=== PATIENT | female | born 1980 | race Caucasian/White ===

== ENCOUNTER 2023-04-19 01:48 | Emergency (ER) | payer MEDICAID ==
[2023-04-19] MEDS ORDERED: OXYCODONE-ACETAMINOPHEN 10-325 PO STA (02:01)
[2023-04-19 02:04] VITALS: RESP 18; TEMP 98.3
--- NOTE | 2023-04-19 02:06 | ERPHSYRPT ---
- History of Present Illness Time Seen by Provider: 04/19/23 01:54 Source: patient Exam Limitations: no limitations Physician History: 42 years old female with history of chronic back pain on Percocet and muscle relaxants presented in the ER with chief complaint of worsening back pain for the last 6 hours after she was wrestling with her . Patient reports lower back pain nonradiating moderate to severe sharp, took muscle relaxant with no significant relief. Patient reports she is out of her Percocet that she could not get her full prescription filled by pharmacy as they are short of Percocets otherwise she would have not been in the emergency room. She denies any numbness tingling weakness of lower extremities, hurts to walk but no obvious difficulty noticed while in the ER. No loss of bowel or bladder control. Pain is similar to previous. She is not in any distress. She has lower lumbar spinal and paraspinal area mild tenderness. No step-off deformity. Steady gait. Negative neuro exam in lower extremities. I do not think patient has spinal compression. She is given Percocet symptomatic relief and she is advised to get her rest of prescription filled in the morning. Discussed signs symptoms of worsening needing return to ER which she seems understanding. Stable for discharge. Allergies/Adverse Reactions: diazepam [From Valium] Allergy (Mild, Verified 04/19/23 01:56) sertraline [From Zoloft] Allergy (Mild, Verified 04/19/23 01:56) sulfamethoxazole [From Bactrim] Allergy (Mild, Verified 04/19/23 01:56) trimethoprim [From Bactrim] Allergy (Mild, Verified 04/19/23 01:56) Home Medications: No Reportable Medications [No Reported Medications] 04/19/23 [History] - Review of Systems Constitutional: No Symptoms Ears, Nose, & Throat: No Symptoms Respiratory: No Symptoms Cardiac: No Symptoms Abdominal/Gastrointestinal: No Symptoms Genitourinary Symptoms: No Symptoms Musculoskeletal: Back Pain Skin: No Symptoms Neurological: No Symptoms Hematologic/Lymphatic: No Symptoms Immunological/Allergic: No Symptoms - Physical Exam General Appearance: no apparent distress, alert Ears, Nose, Throat Exam: normal ENT inspection Neck Exam: normal inspection, full range of motion Respiratory Exam: normal breath sounds, lungs clear Cardiovascular Exam: regular rate/rhythm, normal heart sounds Gastrointestinal Exam: soft, normal bowel sounds, No tenderness Back Exam: normal inspection, decreased range of motion, muscle spasm, point tenderness (Lower lumbar paraspinal area and mild tenderness in lumbar vertebra. No step-off deformity.) Extremity Exam: normal inspection, normal range of motion, pelvis stable Neurologic Exam: alert, oriented x 3, normal mood/affect, nml station & gait, sensation nml, other (2+ symmetric reflexes bilateral patella and Achilles. Plantars downgoing bilaterally.), No motor deficits Skin Exam: normal color SpO2 Interpretation: normal SpO2: 96 O2 Delivery: Room Air - Progress Progress: pain not gone completely Progress Note: 04/19/23 02:05 42 years old female with history of chronic back pain on Percocet and muscle relaxants presented in the ER with chief complaint of worsening back pain for the last 6 hours after she was wrestling with her . Patient reports lower back pain nonradiating moderate to severe sharp, took muscle relaxant with no significant relief. Patient reports she is out of her Percocet that she could not get her full prescription filled by pharmacy as they are short of Percocets otherwise she would have not been in the emergency room. She denies any numbness tingling weakness of lower extremities, hurts to walk but no obvious difficulty noticed while in the ER. No loss of bowel or bladder cont rol. Pain is similar to previous. She is not in any distress. She has lower lumbar spinal and paraspinal area mild tenderness. No step-off deformity. Steady gait. Negative neuro exam in lower extremities. I do not think patient has spinal compression. She is given Percocet symptomatic relief and she is advised to get her rest of prescription filled in the morning. Discussed signs symptoms of worsening needing return to ER which she seems understanding. Stable for discharge. Counseled pt/family regarding: diagnosis, need for follow-up - Departure Departure Disposition: Home Clinical Impression: Acute exacerbation of chronic low back pain Condition: Stable Critical Care Time: No Instructions: Low Back Pain (DC) Additional Instructions: Follow-up with your primary care and pain management for reevaluation in 1 to 2 days. Get your prescription filled. Take Tylenol/ibuprofen as needed and continue with muscle relaxants. Return to ER for intractable pain, numbness tingling weakness of lower extremities/loss of bowel or bladder control etc.
[2023-04-19] MEDS ORDERED: OXYCODONE-ACETAMINOPHEN 10-325 ONE (02:12)
[2023-04-19 02:27] VITALS: BP 124/68; PULSE 76; O2SAT 97
== END 2023-04-19 02:30 | disposition home or self-care (01) ==
LOC: ED 01:48
DX: G89.29 Other chronic pain (principal); M54.50 Low back pain, unspecified; Z79.891 Long term (current) use of opiate analgesic
CPT/HCPCS: 99281; A9270-GY

== ENCOUNTER 2023-04-21 11:38 | Emergency (ER) | payer MEDICARE ==
[2023-04-21 12:04] VITALS: BP 155/95; PULSE 110; RESP 19
[2023-04-21 12:24] VITALS: O2SAT 94
--- NOTE | 2023-04-21 12:47 | ERPHSYRPT ---
- History of Present Illness Time Seen by Provider: 04/21/23 11:43 Source: patient Exam Limitations: no limitations Patient Subjective Stated Complaint: CHRONIC BACK PAIN Triage Nursing Assessment: PATIENT REPORTS TO ER WITH C/O OF CHRONIC BACK PAIN. PATIENT RATING PAIN 10/10 AT THIS TIME. PATIENT DENIES INJURY TO BACK. PATIENT AMBULATED PER SELF BACK TO ER. PATIENT SITTING UPRIGHT IN BED WITH NO SIGNS OF DISTRESS AND EASY RESPIRATIONS. PATIENT STATES SHE SEES DR. DIAS FOR PAIN MANAGEMENT IN [place] TO MANAGE CHRONIC BACK PAIN AND THAT SHE IS PRESCRIBED PERCOCET 7.5/325MG PO TID SCHEDULED. PATIENT PICKED SCRIPT UP WITH 90 TABLETS ON 03/26/23 AND STATES THAT SHE RAN OUT OF PILLS A LITTLE OVER A WEEK AGO. PATIENT STATES THAT SHE CAME TO THIS ER ON 04/19 AND WAS GIVEN A PAIN PILL DUE TO UNCONTROLLABLE PAIN. PATIENT STATES SHE CALLED THE CASE MAKER NUMBER FOR DR. DIAS AND THAT SHE WILL SEE HIM IN OFFICE TOMORROW. Physician History: 42 years old female with history of chronic back pain on pain management on Percocet 7.5 mg 3 times a day presented in the ER with worsening back pain. Patient was seen in this ER 2 days ago with similar symptoms which she stated that she hurt her back while wrestling with her . Today she did not complain anything like this and reported to the RN that she ran out of her pain medications almost a week ago. Patient told me today and other day that her pharmacy did not fill her full prescription as they are out of Percocet 7.5 mg. She denies any fall or trauma. Patient walked in the ER with no limitations/assistance. She denies any numbness tingling or weakness of lower extremities, no loss of bowel or bladder control. Patient reports she does not want any NSAIDs and only narcotic pain medications help her. I have called her pharmacy at [facility] and have confirmed with them that she is not due for her prescription refill and she filled 90 pills on March 26 and they are not out of Percocet at all. I have told patient and she have called [facility] in front of an RN and pharmacy did confirm that she did not due for her prescription refill and they are not out of it. Patient is offered Toradol and muscle relaxant which she declined. I have realized that patient has not been in this ER until day before yesterday and this is her second visit in 2 days which make me suspicious for drug-seeking behavior. She has no cauda equina symptoms, no acute trauma, do not think she needs a narcotic pain medication specially when she is on pain management contract. Discussed signs symptoms of worsening needing return to ER which she seems understanding. Patient is not happy with the fact that she is not getting any pain medications and it was not a pleasant encounter at all. Allergies/Adverse Reactions: diazepam [From Valium] Allergy (Mild, Verified 04/21/23 11:46) sertraline [From Zoloft] Allergy (Mild, Verified 04/21/23 11:46) sulfamethoxazole [From Bactrim] Allergy (Mild, Verified 04/21/23 11:46) trimethoprim [From Bactrim] Allergy (Mild, Verified 04/21/23 11:46) Home Medications: Oxycodone HCl/Acetaminophen [Oxycodone-Acetaminophn 7.5-325] 1 tab PO TID 04/21/23 [History] Hx Tetanus, Diphtheria Vaccination/Date Given: Yes Hx Influenza Vaccination/Date Given: No Hx Pneumococcal Vaccination/Date Given: No Travel Risk - International Travel Have you traveled outside of the country in past 3 weeks: No - Coronavirus Screening Are you exhibiting any of the following symptoms?: No Close contact with a COVID-19 positive Pt in past 14-21 Days: No - Vaccine Status Have you recieved a Covid-19 vaccination: Yes Pan Greaser: Moderna - Vaccination Dates Date of 2cond Vaccination (if applicable): N/A - Review of Systems Constitutional: No Symptoms Eyes: No Symptoms Ears, Nose, & Throat: No Symptoms Respiratory: No Symptoms Cardiac: No Symptoms Abdominal/Gastrointestinal: No Symptoms Genitourinary Symptoms: No Symptoms Musculoskeletal: Back Pain Skin: No Symptoms Neurological: No Symptoms Endocrine: No Symptoms Hematologic/Lymphatic: No Symptoms - Past Medical History Pertinent Past Medical History: Yes Neurological History: No Pertinent History ENT History: No Pertinent History Cardiac History: No Pertinent History Respiratory History: No Pertinent History Endocrine Medical History: No Pertinent History Musculoskeletal History: Degenerative Disk Disease, Osteoarthritis, Other GI Medical History: No Pertinent History History: No Pertinent History Psycho-Social History: No Pertinent History Female Reproductive Disorders: No Pertinent History Other Medical History: back strains - Past Surgical History Past Surgical History: Yes Neuro Surgical History: No Pertinent History Cardiac: No Pertinent History Respiratory: No Pertinent History Gastrointestinal: Cholecystectomy Genitourinary: No Pertinent History Musculoskeletal: No Pertinent History Female Surgical History: Tubal Ligation, Other Other Surgical History: R ovary removed - Social History Smoking Status: Current every day smoker Exposure to second hand smoke: Yes Drug Use: none Patient Lives Alone: No - Female History Hx Now: No - Nursing Vital Signs Nursing Vital Signs: Initial Vital Signs Pulse Rate 110 H 04/21/23 11:49 Respiratory Rate 19 04/21/23 11:49 Blood Pressure 155/95 04/21/23 11:49 O2 Sat by Pulse Oximetry 96 04/21/23 11:49 Pain Scale Pain Intensity 10 - Physical Exam General Appearance: no apparent distress Eye Exam: PERRL/EOMI Ears, Nose, Throat Exam: normal ENT inspection, pharynx normal Neck Exam: normal inspection, supple, full range of motion Respiratory Exam: normal breath sounds, lungs clear Cardiovascular Exam: normal heart sounds, tachycardia Gastrointestinal Exam: soft, normal bowel sounds, No tenderness Back Exam: normal inspection, normal range of motion, muscle spasm, point tenderness (Lumbar paraspinal area and mild tenderness in the lower lumbar spine. Negative straight leg raising test bilateral. Intact sensations bilaterally. 2+ patellar and Achilles reflexes symmetrical bilaterally. Plantars downgoing.) Extremity Exam: normal inspection, normal range of motion, pelvis stable Neurologic Exam: alert, oriented x 3, cooperative, nml station & gait, sensation nml, No motor deficits Skin Exam: normal color SpO2 Interpretation: normal SpO2: 94 O2 Delivery: Room Air - Progress Progress Note: 04/21/23 12:48 42 years old female with history of chronic back pain on pain management on Percocet 7.5 mg 3 times a day presented in the ER with worsening back pain. Patient was seen in this ER 2 days ago with similar symptoms which she stated that she hurt her back while wrestling with her . Today she did not complain anything like this and reported to the RN that she ran out of her pain medications almost a week ago. Patient told me today and other day that her pharmacy did not fill her full prescription as they are out of Percocet 7.5 mg. She denies any fall or trauma. Patient walked in the ER with no limitations/assistance. She denies any numbness tingling or weakness of lower extremities, no loss of bowel or bladder control. Patient reports she does not want any NSAIDs and only narcotic pain medications help her. I have called her pharmacy at [facility] and have confirmed with them that she is not due for her prescription refill and she filled 90 pills on March 26 and they are not out of Percocet at all. I have told patient and she have called pharmacy in front of an RN and pharmacy did confirm that she did not due for her prescription refill and they are not out of it. Patient is offered Toradol and muscle relaxant which she declined. I have realized that patient has not been in this ER until day before yesterday and t his is her second visit in 2 days which make me suspicious for drug-seeking behavior. She has no cauda equina symptoms, no acute trauma, do not think she needs a narcotic pain medication specially when she is on pain management contract. Discussed signs symptoms of worsening needing return to ER which she seems understanding. Patient is not happy with the fact that she is not getting any pain medications and it was not a pleasant encounter at all. She walked out of the ER without informing anyone Counseled pt/family regarding: diagnosis, need for follow-up - Departure Departure Disposition: AMA (jake) Clinical Impression: Acute exacerbation of chronic low back pain Condition: Stable Critical Care Time: No Referrals: Dennys Mckenzie [Primary Care Provider] - Follow up with PCP 1 day Instructions: Low Back Pain (DC) Additional Instructions: Follow-up with your pain management in the morning. Take Tylenol/ibuprofen as needed. Continue with your muscle relaxants. Return to ER for intractable pain, numbness tingling weakness of lower extremities/loss of bowel or bladder control/perineal numbness etc.
== END 2023-04-21 12:45 | disposition left against medical advice (07) ==
LOC: ED 11:38
DX: G89.29 Other chronic pain (principal); M54.50 Low back pain, unspecified; Z79.891 Long term (current) use of opiate analgesic; Z72.0 Tobacco use
CPT/HCPCS: 99281

== ENCOUNTER 2023-06-07 21:29 | Emergency (ER) | payer MEDICARE ==
--- NOTE | 2023-06-07 23:12 | ERPHSYRPT ---
- History of Present Illness Time Seen by Provider: 06/07/23 23:11 Source: patient Exam Limitations: no limitations Physician History: This is a 42-year-old white female patient who was falling towards a wall when she used her right hand/extremity to stop her from falling forward. She felt significant pain later in the afternoon. The falling forward and bracing herself occurred approximately noon today. Patient has had prior fractures, dislocation and surgery in this right elbow. Patient took 400 mg ibuprofen at 6:30 PM and one 7.5/325 oxycodone/APAP at approximately 6:30 PM. Occurred: this afternoon Method of Injury: fell (Forward into a wall) Quality: aching Severity of Pain-Max: moderate Severity of Pain-Current: moderate Extremities Pain Location: elbow: right Modifying Factors: Improves With: movement Associated Symptoms: none Allergies/Adverse Reactions: diazepam [From Valium] Allergy (Mild, Verified 06/07/23 23:10) sertraline [From Zoloft] Allergy (Mild, Verified 06/07/23 23:10) sulfamethoxazole [From Bactrim] Allergy (Mild, Verified 06/07/23 23:10) trimethoprim [From Bactrim] Allergy (Mild, Verified 06/07/23 23:10) Home Medications: Oxycodone HCl/Acetaminophen [Oxycodone-Acetaminophn 7.5-325] 1 tab PO TID 04/21/23 [History] Hx Tetanus, Diphtheria Vaccination/Date Given: Yes Hx Influenza Vaccination/Date Given: No Hx Pneumococcal Vaccination/Date Given: No Travel Risk - International Travel Have you traveled outside of the country in past 3 weeks: No - Coronavirus Screening Are you exhibiting any of the following symptoms?: No Close contact with a COVID-19 positive Pt in past 14-21 Days: No - Vaccine Status Have you recieved a Covid-19 vaccination: Yes Pattern Hand: Moderna - Vaccination Dates Date of 2cond Vaccination (if applicable): N/A - Review of Systems Constitutional: No Symptoms Eyes: No Symptoms Ears, Nose, & Throat: No Symptoms Respiratory: No Symptoms Cardiac: No Symptoms Abdominal/Gastrointestinal: No Symptoms Genitourinary Symptoms: No Symptoms Musculoskeletal: Injury (Right elbow) Skin: No Symptoms Neurological: No Symptoms Psychological: No Symptoms Endocrine: No Symptoms Hematologic/Lymphatic: No Symptoms Immunological/Allergic: No Symptoms All Other Systems: Reviewed and Negative - Past Medical History Pertinent Past Medical History: Yes Neurological History: No Pertinent History ENT History: No Pertinent History Cardiac History: No Pertinent History Respiratory History: No Pertinent History Endocrine Medical History: No Pertinent History Musculoskeletal History: Degenerative Disk Disease, Osteoarthritis, Other GI Medical History: No Pertinent History History: No Pertinent History Psycho-Social History: No Pertinent History Female Reproductive Disorders: No Pertinent History Other Medical History: back strains - Past Surgical History Past Surgical History: Yes Neuro Surgical History: No Pertinent History Cardiac: No Pertinent History Respiratory: No Pertinent History Gastrointestinal: Cholecystectomy Genitourinary: No Pertinent History Musculoskeletal: No Pertinent History Female Surgical History: Tubal Ligation, Other Other Surgical History: R ovary removed - Social History Smoking Status: Current every day smoker Exposure to second hand smoke: Yes Drug Use: none Patient Lives Alone: No - Nursing Vital Signs Nursing Vital Signs: Initial Vital Signs Pulse Rate 84 06/07/23 23:09 Respiratory Rate 18 06/07/23 23:09 Blood Pressure 129/82 06/07/23 23:09 O2 Sat by Pulse Oximetry 96 06/07/23 23:09 Pain Scale Pain Intensity 9 - Physical Exam General Appearance: no apparent distress, alert, anxiety Eyes, Ears, Nose, Throat Exam: normal ENT inspection, moist mucous membranes Neck Exam: normal inspection, non-tender, supple, full range of motion Cardiovascular/Respiratory Exam: chest non-tender, no respiratory distress Abdominal Exam: non-tender Back Exam: normal inspection, normal range of motion, No CVA tenderness, No vertebral tenderness Shoulder Exam: normal inspection, non-tender, no evidence of injury, normal ROM Elbow/Forearm Exam: normal inspection, normal ROM, bone tenderness (Right elbow), soft tissue tenderness (Overlying right elbow), No deformity Wrist Exam: normal inspection, non-tender, no evidence of injury, normal ROM Hand Exam: normal inspection, non-tender, no evidence of injury, normal ROM Neuro/Tendon Exam: normal sensation, normal motor functions, normal tendon functions, responds to pain, no evidence tendon injury Mental Status Exam: alert, oriented x 3, cooperative Skin Exam: normal color, warm, dry SpO2 Interpretation: normal O2 Delivery: Room Air - Course Nursing assessment & vital signs reviewed: Yes Ordered Tests: Active Orders 24 hr Category Date Time Status ELBOW (MINIMUM 3 VIEWS) Stat Exams 06/07/23 23:26 Taken - Progress Progress: improved, pain not gone completely Progress Note: 06/08/23 00:11 This patient's medical issue is 1 of low complexity. The level of complexity in the workup performed is based on review of the patient's past medical history, review of the patient's medication list, review of patient drug allergy list, history present illness and physical findings on examination. The workup in this patient includes three-view x-ray right elbow I interpreted the x-ray of the right elbow. There is no evidence of any acute fracture or dislocation. Counseled pt/family regarding: diagnosis, need for follow-up, rad results Medical Desision Making - Diagnostic Testing Diagnostic test were ordered, analyzed, and reviewed by me: Yes Radiological Interpretation: Interpreted by me - Risk of complications Minimal Risk: Minimal risk of morbidity - Departure Departure Disposition: Home Clinical Impression: Sprain of right elbow Condition: Stable Critical Care Time: No Referrals: Dennys Mckenzie [Primary Care Provider] - Follow up/PCP as directed Additional Instructions: Ice pack to tender area 3 times a day for the next 48 hours. Continue using your pain medicine as prescribed. Continue using ibuprofen 400 to 600 mg orally with food 3 times a day for the next 5 days. Call your prescribing provider on 06/11/2023 to make arranges for further evaluation management.
[2023-06-07 23:21] VITALS: TEMP 97
[2023-06-08] MEDS ORDERED: ZOFRAN ODT 4 MG PO ONE (00:13)
[2023-06-08] MEDS ORDERED: Hydromorphone 1 mg/ml Injection IM ONE (00:14)
[2023-06-08 00:20] VITALS: BP 116/75; PULSE 94; RESP 18; O2SAT 98
[2023-06-08] MEDS ORDERED: ZOFRAN ODT 4 MG ONE (00:21)
[2023-06-08] MEDS ORDERED: Hydromorphone 1 mg/ml Injection ONE (00:21)
--- NOTE | 2023-06-08 07:15 | XRAY ---
Indication: Pain following injury. Comparison: None 3 view right elbow obtained. No bony, articular, or soft tissue abnormalities.
== END 2023-06-08 00:48 | disposition home or self-care (01) ==
LOC: ED 21:29
DX: S53.401A Unspecified sprain of right elbow, initial encounter (principal); W22.01XA Walked into wall, initial encounter; Z79.891 Long term (current) use of opiate analgesic; Z72.0 Tobacco use
CPT/HCPCS: 73080; 96372; 99283; J1170; Q0162

== ENCOUNTER 2023-06-10 21:53 | Emergency (ER) | payer MEDICARE ==
[2023-06-10 22:12] VITALS: RESP 18; TEMP 98.2
[2023-06-10] MEDS ORDERED: Sodium Chloride 0.9% 1000 ML 1,000 ML IV STA (22:17)
[2023-06-10] MEDS ORDERED: Zofran 4 MG/2 ML VIAL IV ONE (22:17)
[2023-06-10] MEDS ORDERED: MORPHINE SULFATE 4 MG INJ IV ONE ×2 (22:17→23:17)
[2023-06-10] MEDS ORDERED: Zofran 4 MG/2 ML VIAL ONE (22:26)
[2023-06-10] MEDS ORDERED: Sodium Chloride 0.9% 1000 ML 1,000 ML ONE (22:27)
[2023-06-10] MEDS ORDERED: MORPHINE SULFATE 4 MG INJ ONE ×2 (22:27→23:19)
[2023-06-10 22:38] LABS: Absolute Neutrophil Ct (ANC) 4.47 x10^3/uL (1.4-6.9); BASOPHIL % 0.4 % (0.0-0.4); Basophil (Absolute #) 0.03 x10^3/uL (0-0.4); Eosinophil % 1.4 % (0.00-5.0); Hematocrit 36.8 % (35-47); Hemoglobin 12.5 g/dL (12.0-16.0); IMMATURE GRAN # 0.01 x10^3u/L (0.00-0.03); IMMATURE GRAN % 0.1 % (0.00-0.4); Lymphocyte (Absolute #) 2.02 x10^3/uL (1.0-4.6); Lymphocytes % 28.8 % (24.0-44.0); Mean Cell Volume 92.2 fL (78-100); Mean Corpuscular Hemoglobin 31.3 pg (26-32); Mean Platelet Volume 9.3 fL (7.5-11.0); Monocyte (Absolute #) 0.39 x10^3/uL (0.0-1.3); Monocytes % 5.6 % (0.0-12.0); Neutrophil % 63.7 % (36.0-66.0); Platelet Count 214 x10^3/uL (150-450); Red Blood Count 3.99 x10^6/uL (4.1-5.4); Red Cell Distribution Width 11.9 % (11.5-14.0)
[2023-06-10 22:42] LABS: HCG URINE TEST NEGATIVE (NEGATIVE)
[2023-06-10 22:46] LABS: Bacteria Rare /HPF (None Seen); Epithelial Cells Moderate /HPF (None Seen); Hyaline Casts NONE SEEN /LPF (0-2); RBC 0-2 /HPF (0-5)
[2023-06-10 22:46] LABS: ANION GAP 10.3 MEQ/L (5-15); BILIRUBIN,TOTAL 0.4 mg/dL (0.2-1.3); Calcium 9.5 mg/dL (8.4-10.2); Creatinine 1 0.61 mg/dL (0.52-1.04); EST GLOMERULAR FILTRATION RATE 115.8 ML/MIN; Potassium 3.4 mmol/L (3.5-5.1); Total Protein 6.9 g/dL (6.3-8.2)
[2023-06-10 22:47] LABS: Appearance Clear (Clear); Bilirubin Negative (Negative); Blood Negative (Negative); Ketones Negative (Negative); Leukocyte Esterase Trace (Negative); Nitrite Negative (Negative); Protein,Urine Dip Negative (Negative); Specific Gravity 1.025 (1.005-1.030); Urobilinogen 0.2 mg/dL (0.2)
[2023-06-10 22:48] LABS: ADD URINE CULTURE? NO (NO); Glucose, Urine Negative (Negative)
[2023-06-10] MEDS ORDERED: TORAdol 30 mg Injection IV ONE (22:57)
[2023-06-10] MEDS ORDERED: TORAdol 30 mg Injection ONE (23:04)
[2023-06-10 23:09] VITALS: PULSE 92
--- NOTE | 2023-06-10 23:55 | ERPHSYRPT ---
- History of Present Illness Time Seen by Provider: 06/10/23 22:02 Historian: patient Exam Limitations: no limitations Patient Subjective Stated Complaint: pt reports RLQ pain beginning last evening around this time. pt reports pain is worse after meals and especially worse after glenn dinner this evening. pt reports nausea and vomiting as well. pt denies an /GI complaint. pt reports that she has a ride if needed. Triage Nursing Assessment: pt is aox3, ambulatory to t area with no difficulty, pupils perrl, afebrile, resps easy and non labored, radial pulses strong and equal, cap refill < 3 seconds, heart tones regular, abd soft, tender to the RLQ with palpation, bowel sounds present normoactive x4, pt skin pink warm dry. Physician History: 42 years old female with history of chronic back pain on pain management presented in the ER with chief complaint of right lower quadrant pain since yesterday, moderate to severe sharp, aggravated with oral intake and got worse after she had a [employer] dinner tonight. Reports 10/10 intensity pain, no relieving factors. Associated nausea and couple of episodes of nonprojectile, nonbilious vomiting without hematemesis. Denies any diarrhea or constipation. No fever or chills reported. Patient reports this pain is different than her routine back pain. 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 Allergies/Adverse Reactions: diazepam [From Valium] Allergy (Mild, Verified 06/10/23 21:59) sertraline [From Zoloft] Allergy (Mild, Verified 06/10/23 21:59) sulfamethoxazole [From Bactrim] Allergy (Mild, Verified 06/10/23 21:59) trimethoprim [From Bactrim] Allergy (Mild, Verified 06/10/23 21:59) Home Medications: Oxycodone HCl/Acetaminophen [Oxycodone-Acetaminophn 7.5-325] 1 tab PO TID 04/21/23 [History] Hx Tetanus, Diphtheria Vaccination/Date Given: Yes Hx Influenza Vaccination/Date Given: No Hx Pneumococcal Vaccination/Date Given: No Travel Risk - International Travel Have you traveled outside of the country in past 3 weeks: No - Coronavirus Screening Are you exhibiting any of the following symptoms?: No Close contact with a COVID-19 positive Pt in past 14-21 Days: No - Vaccine Status Have you recieved a Covid-19 vaccination: Yes Supervisor Stripping: Moderna - Vaccination Dates Date of 2cond Vaccination (if applicable): N/A - Review of Systems Constitutional: No Symptoms Eyes: No Symptoms Ears, Nose, & Throat: No Symptoms Respiratory: No Symptoms Cardiac: No Symptoms Abdominal/Gastrointestinal: Abdominal Pain, Nausea, Vomiting Genitourinary Symptoms: No Symptoms Musculoskeletal: Back Pain Skin: No Symptoms Neurological: No Symptoms Endocrine: No Symptoms Hematologic/Lymphatic: No Symptoms Immunological/Allergic: No Symptoms - Past Medical History Pertinent Past Medical History: Yes Neurological History: No Pertinent History ENT History: No Pertinent History Cardiac History: No Pertinent History Respiratory History: No Pertinent History Endocrine Medical History: No Pertinent History Musculoskeletal History: Degenerative Disk Disease, Osteoarthritis, Other GI Medical History: No Pertinent History History: No Pertinent History Psycho-Social History: No Pertinent History Female Reproductive Disorders: No Pertinent History Other Medical History: back strains - Past Surgical History Past Surgical History: Yes Neuro Surgical History: No Pertinent History Cardiac: No Pertinent History Respiratory: No Pertinent History Gastrointestinal: Cholecystectomy Genitourinary: No Pertinent History Musculoskeletal: No Pertinent History Female Surgical History: Tubal Ligation, Other Other Surgical History: R ovary removed - Social History Smoking Status: Current every day smoker How long have you smoked: 14 yo Exposure to second hand smoke: Yes Drug Use: none Patient Lives Alone: No - Female History Hx Last Menstrual Period: 2011 Hx Now: (unkn) - Nursing Vital Signs Nursing Vital Signs: Initial Vital Signs Temperature 98.2 F 06/10/23 22:00 Pulse Rate 107 H 06/10/23 22:00 Respiratory Rate 18 06/10/23 22:00 Blood Pressure 115/87 06/10/23 22:00 O2 Sat by Pulse Oximetry 96 06/10/23 22:00 Pain Scale Pain Intensity 4 - Physical Exam General Appearance: no apparent distress, alert Eye Exam: PERRL/EOMI Ears, Nose, Throat Exam: normal ENT inspection Neck Exam: normal inspection, supple, full range of motion Respiratory Exam: normal breath sounds, lungs clear Cardiovascular Exam: regular rate/rhythm, normal heart sounds Gastrointestinal/Abdomen Exam: soft, normal bowel sounds, tenderness (Right lower quadrant) Back Exam: normal inspection, normal range of motion, No CVA tenderness Extremity Exam: normal inspection, normal range of motion Neurologic Exam: alert, oriented x 3, cooperative, 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 analyst II-XII nml as tested Skin Exam: normal color SpO2 Interpretation: normal SpO2: 98 O2 Delivery: Room Air Ordered Tests: Active Orders 24 hr Category Date Time Status IV Insertion STAT Care 06/10/23 22:17 Active NPO (ED) STAT Care 06/10/23 22:17 Active ABDOMEN AND PELVIS W CONTRAST [CT] Stat Exams 06/10/23 22:18 Completed CBC W DIFF Stat Lab 06/10/23 22:34 Completed CMP Stat Lab 06/10/23 22:34 Completed HCG QUALITATIVE, URINE Stat Lab 06/10/23 22:24 Completed LIPASE Stat Lab 06/10/23 22:34 Completed Lactic Acid Stat Lab 06/10/23 22:45 Completed UA W/RFX UR CULTURE Stat Lab 06/10/23 22:24 Completed Medication Summary Discontinued Medications Generic Name Dose Route Start Last Admin Trade Name Freq PRN Reason Stop Dose Admin Sodium Chloride 1,000 mls @ 999 mls/hr 06/10/23 22:17 06/10/23 23:35 Sodium Chloride 0.9% 1000 Ml IV 06/10/23 23:17 Infused .Q1H1M STA Infusion Sodium Chloride Confirm 06/10/23 22:27 Sodium Chloride 0.9% 1000 Ml Administered 06/10/23 22:28 Dose 1,000 mls @ ud .ROUTE .STK-MED ONE Ketorolac Tromethamine 30 mg 06/10/23 22:57 06/10/23 23:07 Ketorolac Tromethamine 30 Mg/Ml Inj IV 06/10/23 22:58 Not Given STAT ONE Ketorolac Tromethamine Confirm 06/10/23 23:04 Ketorolac Tromethamine 30 Mg/Ml Inj Administered 06/10/23 23:05 Dose 30 mg .ROUTE .STK-MED ONE Morphine Sulfate 4 mg 06/10/23 22:17 06/10/23 22:31 Morphine Sulfate 4 Mg/Ml Injection IV 06/10/23 22:18 4 mg STAT ONE Administration Morphine Sulfate Confirm 06/10/23 22:27 Morphine Sulfate 4 Mg/Ml Injection Administered 06/10/23 22:28 Dose 4 mg .ROUTE .STK-MED ONE Morphine Sulfate 4 mg 06/10/23 23:17 06/10/23 23:20 Morphine Sulfate 4 Mg/Ml Injection IV 06/10/23 23:18 4 mg STAT ONE Administration Morphine Sulfate Confirm 06/10/23 23:19 Morphine Sulfate 4 Mg/Ml Injection Administered 06/10/23 23:20 Dose 4 mg .ROUTE .STK-MED ONE Ondansetron HCl 4 mg 06/10/23 22:17 06/10/23 22:30 Ondansetron Hcl 4 Mg/2 Ml Vial IV 06/10/23 22:18 4 mg STAT ONE Administration Ondansetron HCl Confirm 06/10/23 22:26 Ondansetron Hcl 4 Mg/2 Ml Vial Administered 06/10/23 22:27 Dose 4 mg .ROUTE .STK-MED ONE Lab/Rad Data: Laboratory Result Diagrams 06/10/23 22:34 06/10/23 22:34 Laboratory Results 06/10/23 06/10/23 06/10/23 Range/Units 22:45 22:34 22:34 WBC 7.0 (4.0-10.5) x10^3/uL RBC 3.99 L (4.1-5.4) x10^6/uL Hgb 12.5 (12.0-16.0) g/dL Hct 36.8 (35-47) % MCV 92.2 (78-100) fL MCH 31.3 (26-32) pg MCHC 34.0 (32-36) g/dL RDW 11.9 (11.5-14.0) % Plt Count 214 (150-450) x10^3/uL MPV 9.3 (7.5-11.0) fL Gran % 63.7 (36.0-66.0) % Immature Gran % (Auto) 0.1 (0.00-0.4) % Nucleat RBC Rel Count 0.0 (0.00-0.1) % Eos # (Auto) 0.10 (0-0.5) x10^3/uL Immature Gran # (Auto) 0.01 (0.00-0.03) x10^3u/L Absolute Lymphs (auto) 2.02 (1.0-4.6) x10^3/uL Absolute Monos (auto) 0.39 (0.0-1.3) x10^3/uL Absolute Nucleated RBC 0.00 (0.00-0.01) x10^3u/L Lymphocytes % 28.8 (24.0-44.0) % Monocytes % 5.6 (0.0-12.0) % Eosinophils % 1.4 (0.00-5.0) % Basophils % 0.4 (0.0-0.4) % Absolute Granulocytes 4.47 (1.4-6.9) x10^3/uL Basophils # 0.03 (0-0.4) x10^3/uL Sodium 135 L (137-145) mmol/L Potassium 3.4 L (3.5-5.1) mmol/L Chloride 103 (98-107) mmol/L Carbon Dioxide 25 (22-30) mmol/L Anion Gap 10.3 (5-15) MEQ/L BUN 8 (7-17) mg/dL Creatinine 0.61 (0.52-1.04) mg/dL Estimated GFR 115.8 ML/MIN Glucose 89 (74-106) mg/dL Lactic Acid 1.1 (0.4-2.0) Calcium 9.5 (8.4-10.2) mg/dL Total Bilirubin 0.40 (0.2-1.3) mg/dL AST 17 (14-36) U/L ALT 17 (0-35) U/L Alkaline Phosphatase 90 (38-126) U/L Serum Total Protein 6.9 (6.3-8.2) g/dL Albumin 4.0 (3.5-5.0) g/dL Lipase 59 (23-300) U/L Urine Color (Yellow) Urine Appearance (Clear) Urine pH (4.6-8.0) Ur Specific [place] (1.005-1.030) Urine Protein (Negative) Urine Glucose (UA) (Negative) mg/dL Urine Ketones (Negative) Urine Blood (Negative) Urine Nitrite (Negative) Urine Bilirubin (Negative) Urine Urobilinogen (0.2) mg/dL Ur Leukocyte Esterase (Negative) U Hyaline Cast (Auto) (0-2) /LPF Urine Microscopic RBC (0-5) /HPF Urine Microscopic WBC (0-5) /HPF Ur Epithelial Cells (None Seen) /HPF Urine Bacteria (None Seen) /HPF Urine Culture Reflexed (NO) Urine HCG, Qual (NEGATIVE) 06/10/23 06/10/23 Range/Units 22:24 22:24 WBC (4.0-10.5) x10^3/uL RBC (4.1-5.4) x10^6/uL Hgb (12.0-16.0) g/dL Hct (35-47) % MCV (78-100) fL MCH (26-32) pg MCHC (32-36) g/dL RDW (11.5-14.0) % Plt Count (150-450) x10^3/uL MPV (7.5-11.0) fL Gran % (36.0-66.0) % Immature Gran % (Auto) (0.00-0.4) % Nucleat RBC Rel Count (0.00-0.1) % Eos # (Auto) (0-0.5) x10^3/uL Immature Gran # (Auto) (0.00-0.03) x10^3u/L Absolute Lymphs (auto) (1.0-4.6) x10^3/uL Absolute Monos (auto) (0.0-1.3) x10^3/uL Absolute Nucleated RBC (0.00-0.01) x10^3u/L Lymphocytes % (24.0-44.0) % Monocytes % (0.0-12.0) % Eosinophils % (0.00-5.0) % Basophils % (0.0-0.4) % Absolute Granulocytes (1.4-6.9) x10^3/uL Basophils # (0-0.4) x10^3/uL Sodium (137-145) mmol/L Potassium (3.5-5.1) mmol/L Chloride (98-107) mmol/L Carbon Dioxide (22-30) mmol/L Anion Gap (5-15) MEQ/L BUN (7-17) mg/dL Creatinine (0.52-1.04) mg/dL Estimated GFR ML/MIN Glucose (74-106) mg/dL Lactic Acid (0.4-2.0) Calcium (8.4-10.2) mg/dL Total Bilirubin (0.2-1.3) mg/dL AST (14-36) U/L ALT (0-35) U/L Alkaline Phosphatase (38-126) U/L Serum Total Protein (6.3-8.2) g/dL Albumin (3.5-5.0) g/dL Lipase (23-300) U/L Urine Color Yellow (Yellow) Urine Appearance Clear (Clear) Urine pH 6.0 (4.6-8.0) Ur Specific [place] 1.025 (1.005-1.030) Urine Protein Negative (Negative) Urine Glucose (UA) Negative (Negative) mg/dL Urine Ketones Negative (Negative) Urine Blood Negative (Negative) Urine Nitrite Negative (Negative) Urine Bilirubin Negative (Negative) Urine Urobilinogen 0.2 (0.2) mg/dL Ur Leukocyte Esterase Trace A (Negative) U Hyaline Cast (Auto) NONE SEEN (0-2) /LPF Urine Microscopic RBC 0-2 (0-5) /HPF Urine Microscopic WBC 11-20 A (0-5) /HPF Ur Epithelial Cells Moderate A (None Seen) /HPF Urine Bacteria Rare A (None Seen) /HPF Urine Culture Reflexed NO (NO) Urine HCG, Qual NEGATIVE (NEGATIVE) - Progress Progress: pain not gone completely, re-examined Progress Note: 06/11/23 00:26 42 years old female with history of chronic back pain on pain management presented in the ER with chief complaint of right lower quadrant pain since yesterday, moderate to severe sharp, aggravated with oral intake and got worse after she had a [employer] dinner tonight. Reports 10/10 intensity pain, no relieving factors. Associated nausea and couple of episodes of nonprojectile, nonbilious vomiting without hematemesis. Denies any diarrhea or constipation. No fever or chills reported. Patient reports this pain is different than her routine back pain. 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 She is also telling at the front tender that she has a ride to go home. Patient states she was here couple days ago for elbow pain and got Dilaudid and had some issue with having a ride after narcotics so she is making sure she has someone today. On exam she has tenderness in the right lower quadrant with no guarding or rebound tenderness. Stable vitals. She is given fluids and symptomatic treatment with morphine and Zofran, on reevaluation her pain is better but not resolved. She is requesting more pain medication especially Dilaudid but I have ordered Toradol which she refused to have it as patient states "it does not go with my body". Patient has normal white count, unremarkable chemistries, no UTI as it seems like it is a contaminated sample. She refused to go to CAT scan as she stated she is having severe pain and is given second dose of morphine and CT abdomen pelvis with contrast is negative for any acute intra-abdominal pelvic findings and has normal appendix. Her pain could be secondary to adhesions from previous surgeries. When I went back to discuss the results of workup including CT she stated she wants stronger pain medications as her pain is not getting any better. I have again offered her Toradol which she declined. I have told her that she can take her Percocet which she normally takes every day but she states that she is not having enough to take tonight. She is advised to follow-up with her primary care and pain management in 1 to 2 days for reevaluation. Patient has been evaluated in this ER in the past by me for back pain when she ran out earlier and was requesting pain medication in the past as well. Patient abdominal exam is soft with no peritoneal signs and she has some pain seeking behavior and I do not feel comfortable giving her Dilaudid. She is being discharged with outpatient follow-up. I will give her Tahmina to go home. Discussed signs symptoms of worsening again needing return to ER which she seems understanding. 06/11/23 00:31 Counseled pt/family regarding: lab results, diagnosis, need for follow-up, rad results Medical Desision Making - Diagnostic Testing Diagnostic test were ordered, analyzed, and reviewed by me: Yes Radiological Interpretation: Reviewed by me, Teleradiologist Report - Risk of complications The pt has a mod risk of morbidity or mortality based on: Need for prescription drug management - Departure Departure Disposition: Home Clinical Impression: Right sided abdominal pain Condition: Stable Critical Care Time: No Referrals: Dennys Mckenzie [Primary Care Provider] - Follow up with PCP 1 day Instructions: Abdominal pain Additional Instructions: Take pain medications which you have at home as recommended. Follow-up with primary care for reevaluation. Return to ER for any worsening abdominal pain, intractable vomiting/fever chills etc. Prescriptions: Ondansetron ODT 4 MG [Zofran Odt 4 mg] 1 ea PO QIDPRN PRN #7 tablet PRN Reason: n/v
--- NOTE | 2023-06-11 00:09 | XRAY ---
CLINICAL HISTORY:RLQ pain COMPARISON:None TECHNIQUE:Contiguous axial images were obtained from the level of the diaphragm to the pubic symphysis with intravenous contrast. Coronal and sagittal reconstructions were likewise performed and indicated to increase the sensitivity for detecting clinically relevant pathology. If IV contrast material had not been administered, the likelihood of detecting abnormalities relevant to the patient's condition would have been substantially decreased. CT scan was performed according to ALARA (as low as reasonably achievable). FINDINGS: The visualized lung bases are clear. The liver is normal in size and attenuation. No focal liver lesions are seen. There is no intra or extrahepatic biliary ductal dilatation. Hepatic vasculature is patent. Gall bladder not seen with surgical clips in the gall bladder fossa region, in keeping with post cholecystectomy status. The spleen, pancreas, and adrenal glands are unremarkable. The kidneys are normal in size and attenuation. There is no hydronephrosis or perinephric fat stranding. No renal calculi or renal masses are identified. The ureters are normal in caliber and no ureteral calculi are seen. The bladder is normal in contour. The pelvic viscera is unremarkable. No adenopathy or fluid collections are seen. No evidence of focal or diffuse bowel wall thickening or evidence of bowel obstruction is seen. The appendix is visualized in the right lower quadrant and appears within normal limits. Abdominal and pelvic vasculature is patent. No aggressive appearing osseous lesions are identified. IMPRESSION: 1. No obvious acute cause of abdominal pain identified in the present scan. Appendix is normal. Electronically Signed by: Dr. Devin Bravo MD. (06/11/2023 00:04:33 EST)
[2023-06-11 00:21] VITALS: BP 127/76
[2023-06-11 00:32] VITALS: O2SAT 98
== END 2023-06-11 00:50 | disposition home or self-care (01) ==
LOC: ED 21:53
DX: R10.31 Right lower quadrant pain (principal); R11.2 Nausea with vomiting, unspecified; Z79.891 Long term (current) use of opiate analgesic; Z72.0 Tobacco use
CPT/HCPCS: 36000; 36415; 74177; 80053; 81001; 81025; 83605; 83690; 85025; 96360; 96374; 96375; 96376; 99284; J1885; J2270; J2405

== ENCOUNTER 2023-09-08 22:10 | Emergency (ER) | payer MEDICARE ==
[2023-09-09 00:04] VITALS: TEMP 98.6; O2SAT 98
--- NOTE | 2023-09-09 00:19 | ERPHSYRPT ---
- History of Present Illness Time Seen by Provider: 09/09/23 00:05 Source: patient Patient Subjective Stated Complaint: pt states that yesterday at approx 1700 she was lifting a laundry basket full CB radios and one fell out and hit her on her elbow and she has had constant pain ever since. Triage Nursing Assessment: pt ambulated into room 7 independently with slow steady gait after standing on scale for weight acquisition. pt is alert and oriented times three, able to speak in complete sentences, able to move all extremities (limited to right elbow due to pain), and with resp even and unlabored. right elbow without deformity, bruising, contusion, open area, or swe lling noted. pt denies numbness or tingling. right radial pulse present and palpable. right upper ext with normal color, cap refill, and sensation. Physician History: 42yo f presents to ED by private vehicle for 1d right elbow pain. Pt states she was putting a radio on a high shelf when the radio fell and hit the lateral side of her elbow. Pt states she has been able to use the right UE w/o difficulties, but the pain is so bad that she felt she needed to be seen. Pt states she has good strength in her right hand, denies any numbness/tingling in hand. Occurred: this afternoon Method of Injury: other (radio fell and hit her elbow from a shelf ) Quality: intermittent, aching Severity of Pain-Max: mild Severity of Pain-Current: mild Extremities Pain Location: elbow: right Modifying Factors: Improves With: cold therapy, immobilization, pain medication Associated Symptoms: none Body Map: 1 - right elbow soft tissue medial to lateral epicondyle Allergies/Adverse Reactions: diazepam [From Valium] Allergy (Mild, Verified 09/08/23 23:41) sertraline [From Zoloft] Allergy (Mild, Verified 09/08/23 23:41) sulfamethoxazole [From Bactrim] Allergy (Mild, Verified 09/08/23 23:41) trimethoprim [From Bactrim] Allergy (Mild, Verified 09/08/23 23:41) Home Medications: Oxycodone HCl/Acetaminophen [Oxycodone-Acetaminophn 7.5-325] 1 tab PO TID 04/21/23 [History] Hx Tetanus, Diphtheria Vaccination/Date Given: Yes Hx Influenza Vaccination/Date Given: No Hx Pneumococcal Vaccination/Date Given: No Immunizations Up to Date: Yes Travel Risk - International Travel Have you traveled outside of the country in past 3 weeks: No - Emerging Infectious Disease Are you exhibiting symptoms associated with any current EIDs: No - Review of Systems Constitutional: No Symptoms Respiratory: No Symptoms Cardiac: No Symptoms Musculoskeletal: Injury - Past Medical History Pertinent Past Medical History: Yes Neurological History: No Pertinent History ENT History: No Pertinent History Cardiac History: No Pertinent History Respiratory History: No Pertinent History Endocrine Medical History: No Pertinent History Musculoskeletal History: Degenerative Disk Disease, Osteoarthritis, Other GI Medical History: No Pertinent History History: No Pertinent History Psycho-Social History: No Pertinent History Female Reproductive Disorders: No Pertinent History Other Medical History: back strains - Past Surgical History Past Surgical History: Yes Neuro Surgical History: No Pertinent History Cardiac: No Pertinent History Respiratory: No Pertinent History Gastrointestinal: Cholecystectomy Genitourinary: No Pertinent History Musculoskeletal: No Pertinent History Female Surgical History: Tubal Ligation, Other Other Surgical History: R ovary removed. uterine ablation - Female History Hx Last Menstrual Period: 2011 uterine ablation/ tubes tied Hx Now: No - Social History Smoking Status: Current every day smoker How long have you smoked: 14 yo Exposure to second hand smoke: Yes Drug Use: none Patient Lives Alone: No - Nursing Vital Signs Nursing Vital Signs: Initial Vital Signs Temperature 98.6 F 09/08/23 23:45 Pulse Rate 103 H 09/08/23 23:45 Respiratory Rate 18 09/08/23 23:45 Blood Pressure 111/78 09/08/23 23:45 O2 Sat by Pulse Oximetry 98 09/08/23 23:45 Pain Scale Pain Intensity 9 - Physical Exam General Appearance: no apparent distress, alert Cardiovascular/Respiratory Exam: chest non-tender, normal breath sounds, regular rate/rhythm, no respiratory distress Shoulder Exam: normal inspection, non-tender, no evidence of injury, normal ROM Elbow/Forearm Exam: normal inspection, no evidence of injury, normal ROM, ecchymosis, pain, soft tissue tenderness, swelling (1cm area soft tissue medial to lateral epicondyle), No abrasions, No asymmetry, No bone tenderness, No deformity, No limited ROM Wrist Exam: normal inspection, non-tender, no evidence of injury, normal ROM Hand Exam: normal inspection (strength 5/5), non-tender, no evidence of injury, normal ROM Neuro/Tendon Exam: normal sensation, normal motor functions, normal tendon functions, no evidence tendon injury Mental Status Exam: alert, oriented x 3, cooperative Skin Exam: normal color, warm, dry SpO2 Interpretation: normal SpO2: 98 O2 Delivery: Room Air Ordered Tests: Active Orders 24 hr Category Date Time Status ELBOW (2 VIEW) Stat Exams 09/08/23 23:42 Taken Medication Summary Discontinued Medications Generic Name Dose Route Start Last Admin Trade Name Freq PRN Reason Stop Dose Admin Hydrocodone Bitart/Acetaminophen 2 tab 09/09/23 00:25 09/09/23 00:37 Hydrocodone/Apap 5/325 1 Tab Tablet PO 09/09/23 00:26 2 tab STAT ONE Administration Hydrocodone Bitart/Acetaminophen Confirm 09/09/23 00:35 Hydrocodone/Apap 5/325 1 Tab Tablet Administered 09/09/23 00:36 Dose 2 tab .ROUTE .STK-MED ONE - Progress Progress: improved Progress Note: 09/09/23 01:01 xray series incomplete - pt unwilling to supinate wrist for imaging 2/2 pain xrays negative for acute fx of elbow 10mg [place] PO improved pain pt requesting hard orthoglass elbow splint for protection while she sleeps - states she is a "rough sleeper" and might hurt it while she is sleeping, I discussed alternative ways that she may be able to protect the elbow while sleeping to which she refused and became agitated that I would not provide her a hard splint I offered ANEL wrap for some compression to be warn at night, pt states she believes this will not help soft tissue contusion of elbow no fracture Pt instructed to protect the elbow w/ extra pillows/sheets at night if she is worried about hitting it while sleeping sling and ANEL wrap offered instructed to follow up w/ orthopedic walk in clinic this week return to ED if: numbness/tingling in the hand develops, weakness of the hand develops, pulses in right wrist become weak, right hand starts to swell instructed to use Ice/ibuprofen for pain/discomfort 09/09/23 01:07 09/09/23 04:00 I was able to give pt a small soft pad that could be placed over elbow and covered w/ ANEL wrap to use while sleeping Medical Desision Making - Diagnostic Testing Diagnostic test were ordered, analyzed, and reviewed by me: Yes Radiological Interpretation: Interpreted by me, Reviewed by me - Risk of complications Minimal Risk: Minimal risk of morbidity - Departure Departure Disposition: Home Clinical Impression: Contusion of elbow Qualifiers: Encounter type: initial encounter Laterality: right Qualified Code(s): S50.01XA - Contusion of right elbow, initial encounter Condition: Stable Critical Care Time: No Referrals: Dennys Mckenzie [Primary Care Provider] - Follow up/PCP as directed Instructions: Contusion (DC) Additional Instructions: soft tissue contusion of elbow no fracture Pt instructed to protect the elbow w/ extra pillows/sheets at night if she is worried about hitting it while sleeping sling and ANEL wrap offered instructed to follow up w/ orthopedic walk in clinic this week return to ED if: numbness/tingling in the hand develops, weakness of the hand develops, pulses in right wrist become weak, right hand starts to swell instructed to use Ice/ibuprofen for pain/discomfort
[2023-09-09 00:20] VITALS: RESP 20
[2023-09-09] MEDS ORDERED: NORCO 5/325 MG ONE (00:35)
[2023-09-09] MEDS: NORCO 5/325 MG PO ONE (00:37)
[2023-09-09 01:24] VITALS: BP 113/66; PULSE 99
--- NOTE | 2023-09-09 08:41 | XRAY ---
Indication: Pain following injury. Comparison: None 2 view right elbow demonstrates tiny spurring coronoid process. No other bony, articular, or soft tissue abnormalities.
== END 2023-09-09 01:44 | disposition home or self-care (01) ==
LOC: ED 22:10
DX: S50.01XA Contusion of right elbow, initial encounter (principal); W20.8XXA Other cause of strike by thrown, projected or falling object, initial encounter; Z72.0 Tobacco use
CPT/HCPCS: 73070; 99283; A9270-GY

== ENCOUNTER 2023-10-06 17:43 | Emergency (ER) | payer MEDICARE ==
--- NOTE | 2023-10-06 18:06 | ERPHSYRPT ---
- History of Present Illness Time Seen by Provider: 10/06/23 18:06 Source: patient Exam Limitations: no limitations Physician History: This is a 42-year-old white female patient who has chronic back pain issues and presents with 3-day history of worsening mid thoracic spine pain. 3 days ago she was getting groceries out of her truck and felt pain in the mid spine area. Despite using her oxycodone pain medicine, the pain has continued to get worse. Patient states she does have a ride home. She also states that the last dose of medication was approximately 1 PM this afternoon. Patient does not have chest pain. Patient does not have shortness of breath. Patient has no urinary or bowel incontinence. She does not have numbness in her feet. Timing/Duration: day(s) (3), worse Method of Injury: lifting, twisted, turning Quality: stabbing, pressure Associated Symptoms: muscle spasms, No urinary incontinence, No loss of bowel control, No numbness in legs/feet Previous symptoms: same symptoms as today, no recent treatment Allergies/Adverse Reactions: diazepam [From Valium] Allergy (Mild, Verified 10/06/23 18:24) sertraline [From Zoloft] Allergy (Mild, Verified 10/06/23 18:24) sulfamethoxazole [From Bactrim] Allergy (Mild, Verified 10/06/23 18:24) trimethoprim [From Bactrim] Allergy (Mild, Verified 10/06/23 18:24) Home Medications: Oxycodone HCl/Acetaminophen [Oxycodone-Acetaminophn 7.5-325] 1 tab PO TID 04/21/23 [History] Hx Tetanus, Diphtheria Vaccination/Date Given: Yes Hx Influenza Vaccination/Date Given: No Hx Pneumococcal Vaccination/Date Given: No Travel Risk - International Travel Have you traveled outside of the country in past 3 weeks: No - Emerging Infectious Disease Are you exhibiting symptoms associated with any current EIDs: No - Review of Systems Constitutional: No Symptoms Eyes: No Symptoms Ears, Nose, & Throat: No Symptoms Respiratory: No Symptoms Cardiac: No Symptoms Abdominal/Gastrointestinal: No Symptoms Genitourinary Symptoms: No Symptoms Musculoskeletal: Back Pain (Mid thoracic level) Skin: No Symptoms Neurological: No Symptoms Psychological: No Symptoms Endocrine: No Symptoms Hematologic/Lymphatic: No Symptoms Immunological/Allergic: No Symptoms All Other Systems: Reviewed and Negative - Past Medical History Pertinent Past Medical History: Yes Neurological History: No Pertinent History ENT History: No Pertinent History Cardiac History: No Pertinent History Respiratory History: No Pertinent History Endocrine Medical History: No Pertinent History Musculoskeletal History: Degenerative Disk Disease, Osteoarthritis, Other GI Medical History: No Pertinent History History: No Pertinent History Psycho-Social History: No Pertinent History Female Reproductive Disorders: No Pertinent History Other Medical History: back strains - Past Surgical History Past Surgical History: Yes Neuro Surgical History: No Pertinent History Cardiac: No Pertinent History Respiratory: No Pertinent History Gastrointestinal: Cholecystectomy Genitourinary: No Pertinent History Musculoskeletal: No Pertinent History Female Surgical History: Tubal Ligation, Other Other Surgical History: R ovary removed. uterine ablation - Social History Smoking Status: Current every day smoker How long have you smoked: 14 yo Exposure to second hand smoke: Yes Drug Use: none Patient Lives Alone: No - Nursing Vital Signs Nursing Vital Signs: Initial Vital Signs Temperature 98.3 F 10/06/23 18:25 Pulse Rate 122 H 10/06/23 18:25 Respiratory Rate 18 10/06/23 18:25 Blood Pressure 127/77 10/06/23 18:25 O2 Sat by Pulse Oximetry 99 10/06/23 18:25 Pain Scale Pain Intensity 9 - Physical Exam General Appearance: no apparent distress, alert, anxiety Eye Exam: PERRL/EOMI, eyes nml inspection Ears, Nose, Throat Exam: normal ENT inspection, moist mucous membranes Neck Exam: normal inspection, non-tender, supple, full range of motion Respiratory Exam: airway intact, No chest tenderness, No respiratory distress Cardiovascular Exam: tachycardia Gastrointestinal Exam: No tenderness Pelvic Exam: not done Rectal Exam: not done Back Exam: normal inspection, normal range of motion, vertebral tenderness (Thoracic level. No obvious swelling or step-off present), muscle spasm Extremity Exam: normal inspection, normal range of motion, pelvis stable Neurologic Exam: alert, oriented x 3, cooperative, social work assistant II-XII nml as tested, normal mood/affect, nml cerebellar function, nml station & gait, sensation nml Skin Exam: normal color, warm, dry Lymphatic Exam: No adenopathy SpO2 Interpretation: normal O2 Delivery: Room Air - Course Nursing assessment & vital signs reviewed: Yes Ordered Tests: Active Orders 24 hr Category Date Time Status THORACIC SPINE (AP,LAT,SWIMM) Stat Exams 10/06/23 18:52 Taken - Progress Progress: improved, pain not gone completely, re-examined Progress Note: 10/06/23 19:08 My medical decision making and assignment of low complexity to this patient's medical issue today is based on review of the patient's past medical history, review the patient's drug allergy list, review of the patient's history present illness and physical findings on examination. The workup in this patient includes thoracic spine x-rays. Differential diagnosis includes paraspinous muscle spasms, thoracic spine subluxation, thoracic spine fracture, acute exacerbation of chronic back pain 10/06/23 19:26 I interpreted the patient's thoracic spine x-rays. She is aware that this is a preliminary read only. The thoracic spine x-ray shows no acute fracture or subluxation. She is aware that the radiologist will over read our evening emergency department x-ray reads. If the reading is different than my read today, she will be notified before noon tomorrow, 10/07/2023. Counseled pt/family regarding: diagnosis, need for follow-up, rad results Medical Desision Making - Diagnostic Testing Diagnostic test were ordered, analyzed, and reviewed by me: Yes Radiological Interpretation: Interpreted by me, Teleradiologist Report - Risk of complications Low Risk: Low risk of morbidity from additional dx testing or treatment - Departure Departure Disposition: Home Clinical Impression: Acute exacerbation of chronic low back pain Condition: Stable Critical Care Time: No Referrals: Dennys Mckenzie [Primary Care Provider] - Follow up/PCP as directed Additional Instructions: Continue your Percocet medication as prescribed. Call your prescribing primary care physician or pain specialist tomorrow, 10/07/2023 to make arranges for follow-up appointment to be seen within the next 3 to 5 days.
[2023-10-06 18:32] VITALS: RESP 18; TEMP 98.3
[2023-10-06] MEDS: Hydromorphone 1 mg/ml Injection IM ONE (19:40)
[2023-10-06] MEDS: ZOFRAN ODT 4 MG PO ONE (19:40)
[2023-10-06] MEDS: solu-MEDROL 125 MG, Sterile H2O 10 ml 2 ML IM ONE (19:40)
[2023-10-06] MEDS: Norflex 60 MG/2 ML IM ONE (19:40)
[2023-10-06] MEDS ORDERED: Sterile H2O 10 ml IJ ONE (19:43)
[2023-10-06] MEDS ORDERED: ZOFRAN ODT 4 MG ONE (19:43)
[2023-10-06] MEDS ORDERED: Norflex 60 MG/2 ML ONE (19:43)
[2023-10-06] MEDS ORDERED: Hydromorphone 1 mg/ml Injection ONE (19:44)
[2023-10-06] MEDS ORDERED: solu-MEDROL ONE (19:44)
[2023-10-06 19:54] VITALS: BP 115/71; PULSE 92; O2SAT 97
--- NOTE | 2023-10-06 20:36 | XRAY ---
Indication: Pain following fall 3 days ago. Comparison: None AP/lateral thoracic spine demonstrates 12 rib-bearing segments with minimal levoscoliosis centered at T2. No other bony, articular, or soft tissue abnormalities.
== END 2023-10-06 19:58 | disposition home or self-care (01) ==
LOC: ED 17:43
DX: G89.29 Other chronic pain (principal); M54.50 Low back pain, unspecified; M54.6 Pain in thoracic spine; Z79.891 Long term (current) use of opiate analgesic; Z72.0 Tobacco use
CPT/HCPCS: 72072; 96372; 99283; J1170; J2360; J2919; Q0162

== ENCOUNTER 2023-10-15 02:12 | Emergency (ER) | payer MEDICARE ==
[2023-10-15 02:23] VITALS: TEMP 97.5
--- NOTE | 2023-10-15 02:58 | ERPHSYRPT ---
- History of Present Illness Time Seen by Provider: 10/15/23 02:40 Source: patient, family Exam Limitations: no limitations Patient Subjective Stated Complaint: Left shoulder pain Triage Nursing Assessment: pt ambulated into ER without diff, pt alert and oriented x4. Pt c/o Left shoulder pain which occured around 5pm yesterday after doing some spring cleaning and lifting some heavy boxes. No edema or bruising noted to Left shoulder area. Pt can wiggle fingers and move her arm without diff, but can only move her left arm about mid way up. Physician History: This is an obese 42-year-old white female who presents to the emergency department with left shoulder pain that occurred approximately 5 PM on 10/14/2023. However, she stated that she did not take her Percocet 7.5 and 2 Advil until 9:30 PM. The patient states that she was moving boxes out of her room in order to clear out the room. Patient has chronic pain issues. She was seen in our emergency department approximately 8 days ago for back pain from getting groceries out of a truck. Patient takes Percocet 7.5 daily. Occurred: yesterday (Evening of 10/14/2023 approximately 5 PM) Allergies/Adverse Reactions: diazepam [From Valium] Allergy (Mild, Verified 10/15/23 02:29) sertraline [From Zoloft] Allergy (Mild, Verified 10/15/23 02:29) sulfamethoxazole [From Bactrim] Allergy (Mild, Verified 10/15/23 02:29) trimethoprim [From Bactrim] Allergy (Mild, Verified 10/15/23 02:29) Home Medications: Oxycodone HCl/Acetaminophen [Oxycodone-Acetaminophn 7.5-325] 1 tab PO TID 04/21/23 [History] Hx Tetanus, Diphtheria Vaccination/Date Given: Yes Hx Influenza Vaccination/Date Given: No Hx Pneumococcal Vaccination/Date Given: No Travel Risk - International Travel Have you traveled outside of the country in past 3 weeks: No - Emerging Infectious Disease Are you exhibiting symptoms associated with any current EIDs: No Symptoms: Joint Pain - Review of Systems Constitutional: No Symptoms Eyes: No Symptoms Ears, Nose, & Throat: No Symptoms Respiratory: No Symptoms Cardiac: No Symptoms Abdominal/Gastrointestinal: No Symptoms Genitourinary Symptoms: No Symptoms Musculoskeletal: Joint Pain (Left shoulder) Skin: No Symptoms Neurological: No Symptoms Psychological: No Symptoms Endocrine: No Symptoms Hematologic/Lymphatic: No Symptoms Immunological/Allergic: No Symptoms All Other Systems: Reviewed and Negative - Past Medical History Pertinent Past Medical History: Yes Neurological History: No Pertinent History ENT History: No Pertinent History Cardiac History: No Pertinent History Respiratory History: No Pertinent History Endocrine Medical History: No Pertinent History Musculoskeletal History: Degenerative Disk Disease, Osteoarthritis, Other GI Medical History: Gallbladder Disease History: No Pertinent History Psycho-Social History: No Pertinent History Female Reproductive Disorders: No Pertinent History Other Medical History: back strains - Past Surgical History Past Surgical History: Yes Neuro Surgical History: No Pertinent History Cardiac: No Pertinent History Respiratory: No Pertinent History Gastrointestinal: Cholecystectomy Genitourinary: No Pertinent History Musculoskeletal: No Pertinent History Female Surgical History: Tubal Ligation, Other Other Surgical History: R ovary removed. uterine ablation, lt ovarian cyst - Female History Hx Now: No - Social History Smoking Status: Current every day smoker How long have you smoked: 28 yrs Exposure to second hand smoke: Yes Drug Use: none Patient Lives Alone: No - Nursing Vital Signs Nursing Vital Signs: Initial Vital Signs Temperature 97.5 F 10/15/23 02:21 Pulse Rate 116 H 10/15/23 02:21 Respiratory Rate 20 10/15/23 02:21 Blood Pressure 108/77 10/15/23 02:21 O2 Sat by Pulse Oximetry 96 10/15/23 02:21 Pain Scale Pain Intensity 9 - Physical Exam General Appearance: no apparent distress, alert, anxiety, obese Eyes, Ears, Nose, Throat Exam: normal ENT inspection, moist mucous membranes Neck Exam: normal inspection, non-tender, supple, full range of motion Cardiovascular/Respiratory Exam: chest non-tender, no respiratory distress Abdominal Exam: non-tender Back Exam: normal inspection, normal range of motion, No CVA tenderness, No vertebral tenderness Shoulder Exam: normal inspection, no evidence of injury, soft tissue tenderness (Left shoulder), No deformity Elbow/Forearm Exam: normal inspection, non-tender, no evidence of injury, normal ROM Wrist Exam: normal inspection, non-tender, no evidence of injury, normal ROM Hand Exam: normal inspection, non-tender, no evidence of injury, normal ROM Neuro/Tendon Exam: normal sensation, normal motor functions, normal tendon functions Mental Status Exam: alert, oriented x 3, cooperative Skin Exam: normal color, warm, dry SpO2 Interpretation: normal SpO2: 96 O2 Delivery: Room Air - Course Nursing assessment & vital signs reviewed: Yes Ordered Tests: Active Orders 24 hr Category Date Time Status SHOULDER Stat Exams 10/15/23 03:06 Completed - Progress Progress: pain not gone completely Progress Note: 10/15/23 03:03 My medical decision making and the assignment of low medical complexity to this patient's medical issue today is based on review of the patient's past medical history, review the patient medication list, review the patient's drug allergy list, history present illness and physical findings on examination. The workup in this patient includes x-ray of the left shoulder. I told the patient that depending on the results of the x-ray that the radiologist provides us, will dictate what she receives in terms of medication. Differential diagnosis includes left shoulder strain, left shoulder fracture, left shoulder dislocation, narcotic pain medication seeking behavior 10/15/23 03:51 The left shoulder x-ray was interpreted by the radiologist. I reviewed the impression. Impression states no acute osseous abnormalities Counseled pt/family regarding: diagnosis, need for follow-up, rad results Medical Desision Making - Independent Historian Additional History obtained from: Family - Diagnostic Testing Diagnostic test were ordered, analyzed, and reviewed by me: Yes Radiological Interpretation: Reviewed by me, Teleradiologist Report - Risk of complications The pt has a mod risk of morbidity or mortality based on: Need for prescription drug management - Departure Departure Disposition: Home Clinical Impression: Left shoulder strain Condition: Stable Critical Care Time: No Referrals: Dennys Mckenzie [Primary Care Provider] - Follow up/PCP as directed Additional Instructions: Take your Percocet 7.5 tablet as soon as you get home this morning. Continue your medications as prescribed. Call your primary care provider this morning, to make arranges for follow-up appointment and for further evaluation and management of your left shoulder pain Prescriptions: Prednisone 10 mg [Deltasone 10 mg] 10 mg PO TID #12 tablet Orphenadrine Citrate 100 mg [Norflex 100 MG Tablet] 100 mg PO BID #10 tab
[2023-10-15 03:07] VITALS: RESP 18
--- NOTE | 2023-10-15 03:38 | XRAY ---
CLINICAL HISTORY: Left shoulder pain COMPARISON: None. TECHNIQUE: X-ray of the left shoulder showing 3 views: AP , internal rotation and lateral views. FINDINGS: No evidence of fracture or dislocation is noted. Average bone density is seen. Intact left acromioclavicular joint space seen. IMPRESSION: No acute osseous abnormality. DISCLAIMER:A subtle bone abnormality or fracture may not be readily apparent on x-rays, thus clinical correlation and further imaging including follow up CT, MRI, or follow up x-rays are advised as needed Electronically Signed by: James Taveras MD. (10/15/2023 03:34:28 EDT)
[2023-10-15] MEDS ORDERED: Norflex 100 MG Tablet PO ONE (03:53)
[2023-10-15] MEDS ORDERED: DELTASONE 20 MG ONE (03:53)
[2023-10-15] MEDS: DELTASONE 20 MG PO ONE (03:54)
[2023-10-15] MEDS: Norflex 100 MG Tablet PO ONE (03:54)
[2023-10-15 04:03] VITALS: BP 117/85; PULSE 111; O2SAT 99
== END 2023-10-15 04:10 | disposition home or self-care (01) ==
LOC: ED 02:12
DX: S46.912A Strain of unspecified muscle, fascia and tendon at shoulder and upper arm level, left arm, initial encounter (principal); X50.0XXA Overexertion from strenuous movement or load, initial encounter; Y93.E9 Activity, other interior property and clothing maintenance; Z79.891 Long term (current) use of opiate analgesic; Z79.52 Long term (current) use of systemic steroids; Z72.0 Tobacco use
CPT/HCPCS: 73030; 99283; A9270-GY

== ENCOUNTER 2023-10-29 01:29 | Emergency (ER) | payer MEDICARE ==
--- NOTE | 2023-10-29 01:43 | ERPHSYRPT ---
- History of Present Illness Time Seen by Provider: 10/29/23 01:43 Source: patient Exam Limitations: no limitations Physician History: This is an obese 42-year-old white female patient who has a pain specialist and is out of her oxycodone 7.5/325 medication and states that her pain specialist will not refill her medication. Patient states that she slipped on the side of the bathtub today and injured her right lower ribs. She is not short of breath. She does not appear to be in any distress. Occurred: just prior to arrival Reason for Fall: slipped (In the bathtub by trying to get up) Injuries/Pain Location: chest (Lateral, lower right side ribs) Loss of Consciousness: no loss of consciousness Quality: aching Severity of Pain-Max: moderate Severity of Pain-Current: moderate Modifying Factors: Improves With: movement Associated Symptoms (Fall): other (Right-sided rib pain) Allergies/Adverse Reactions: diazepam [From Valium] Allergy (Mild, Verified 10/29/23 01:33) sertraline [From Zoloft] Allergy (Mild, Verified 10/29/23 01:33) sulfamethoxazole [From Bactrim] Allergy (Mild, Verified 10/29/23 01:33) trimethoprim [From Bactrim] Allergy (Mild, Verified 10/29/23 01:33) Home Medications: Oxycodone HCl/Acetaminophen [Oxycodone-Acetaminophn 7.5-325] 1 tab PO TID 04/21/23 [History] Hx Tetanus, Diphtheria Vaccination/Date Given: Yes Hx Influenza Vaccination/Date Given: No Hx Pneumococcal Vaccination/Date Given: No Travel Risk - International Travel Have you traveled outside of the country in past 3 weeks: No - Emerging Infectious Disease Are you exhibiting symptoms associated with any current EIDs: No Symptoms: Joint Pain - Review of Systems Constitutional: No Symptoms Eyes: No Symptoms Ears, Nose, & Throat: No Symptoms Respiratory: No Symptoms Cardiac: No Symptoms Abdominal/Gastrointestinal: No Symptoms Genitourinary Symptoms: No Symptoms Musculoskeletal: Fall (Slipped while trying to get out of the bathtub), Injury (Right lower lateral ribs) Skin: No Symptoms Neurological: No Symptoms Psychological: No Symptoms Endocrine: No Symptoms Hematologic/Lymphatic: No Symptoms, Easy Bruising All Other Systems: Reviewed and Negative - Past Medical History Pertinent Past Medical History: Yes Neurological History: No Pertinent History ENT History: No Pertinent History Cardiac History: No Pertinent History Respiratory History: No Pertinent History Endocrine Medical History: No Pertinent History Musculoskeletal History: Degenerative Disk Disease, Osteoarthritis, Other GI Medical History: Gallbladder Disease History: No Pertinent History Psycho-Social History: No Pertinent History Female Reproductive Disorders: No Pertinent History Other Medical History: back strains - Past Surgical History Past Surgical History: Yes Neuro Surgical History: No Pertinent History Cardiac: No Pertinent History Respiratory: No Pertinent History Gastrointestinal: Cholecystectomy Genitourinary: No Pertinent History Musculoskeletal: No Pertinent History Female Surgical History: Tubal Ligation, Other Other Surgical History: R ovary removed. uterine ablation, lt ovarian cyst - Social History Smoking Status: Current every day smoker How long have you smoked: 28 yrs Exposure to second hand smoke: Yes Drug Use: none Patient Lives Alone: No - Nursing Vital Signs Nursing Vital Signs: Initial Vital Signs Temperature 97.1 F 10/29/23 01:34 Pulse Rate 103 H 10/29/23 01:34 Respiratory Rate 18 10/29/23 01:34 Blood Pressure 120/86 10/29/23 01:34 O2 Sat by Pulse Oximetry 98 10/29/23 01:34 Pain Scale Pain Intensity 9 - Cindi Coma Score Best Eye Response (Cindi): (4) open spontaneously Best Verbal Response (Cindi): (5) oriented Best Motor Response (Cindi): (6) obeys commands Cindi Total: 15 - Physical Exam General Appearance: no apparent distress Head Injury: no evidence of injury Eye Exam: PERRL/EOMI, eyes nml inspection ENT Exam: airway nml, nml ext.inspection Neck Exam: supple, trachea midline, full range of motion, normal alignment, normal inspection Respiratory/Chest Exam: normal breath sounds, rib tenderness (Right lower lateral ribs), No chest tenderness, No respiratory distress, No ecchymosis, No crepitus Cardiovascular Exam: normal heart sounds, regular rate/rhythm Gastrointestinal Exam: soft, normal bowel sounds, No tenderness Rectal Exam: not done Back Exam: normal inspection, normal range of motion, No CVA tenderness, No vertebral tenderness Extremity Exam: normal inspection, normal range of motion, pelvis stable Neurologic Exam: alert, oriented x 3, cooperative, music composer II-XII nml as tested, normal mood/affect, nml cerebellar function, nml station & gait, sensation nml Skin Exam: normal color, warm, dry SpO2 Interpretation: normal O2 Delivery: Room Air - Course Nursing assessment & vital signs reviewed: Yes Ordered Tests: Active Orders 24 hr Category Date Time Status CHEST 2 VIEWS (PA AND LAT) Stat Exams 10/29/23 01:59 Taken Medication Summary Discontinued Medications Generic Name Dose Route Start Last Admin Trade Name Mario PRN Reason Stop Dose Admin Oxycodone/Acetaminophen 1 tab 10/29/23 02:20 Oxycodone Hcl/Apap 5 Mg/325 Mg Tablet PO 10/29/23 02:21 STAT STA - Progress Progress: improved, pain not gone completely Progress Note: 10/29/23 02:24 My medical decision making and the assignment of low complexity to this patien t's medical issue today is based on review of the patient's past medical history, review of the patient's medication list, review the patient drug allergy list, history present illness and physical findings on examination. The workup in this patient includes 2 view chest x-ray. Differential diagnosis includes pulmonary contusion, rib contusion, rib fracture. I interpreted the patient's chest x-ray. There is no evidence of any acute cardiopulmonary process. The rib cage on the right appears to be intact with no evidence of acute rib fracture. Counseled pt/family regarding: diagnosis, need for follow-up, rad results Medical Desision Making - Independent Historian Additional History obtained from: Family - Diagnostic Testing Diagnostic test were ordered, analyzed, and reviewed by me: Yes Radiological Interpretation: Interpreted by me - Risk of complications Minimal Risk: Minimal risk of morbidity - Departure Departure Disposition: Home Clinical Impression: Contusion of rib on right side Condition: Stable Critical Care Time: No Critical Care Time(excluding separately billable procedures): Critical 30-74 mins Referrals: Dennys Mckenzie [Primary Care Provider] - Follow up/PCP as directed Additional Instructions: Ice pack to area of tenderness 3 times a day for 48 hours. Call your pain specialist this morning, 10/29/2023 to make arrangement for follow-up appointment to be seen in the next 3 to 5 days.
[2023-10-29 01:45] VITALS: RESP 18; TEMP 97.1; O2SAT 98
[2023-10-29] MEDS ORDERED: PERCOCET TABLET 5/325MG ONE (02:24)
[2023-10-29] MEDS: PERCOCET TABLET 5/325MG PO STA (02:24)
[2023-10-29 02:43] VITALS: BP 123/82; PULSE 83
[2023-10-29] MEDS: Norflex 100 MG Tablet PO ONE (02:53)
--- NOTE | 2023-10-29 08:00 | XRAY ---
Indication: Pain following fall. Comparison: None PA/lateral chest inflated and clear. Heart and mediastinal structures within normal limits. Bony thorax intact. Impression: Nonacute chest.
== END 2023-10-29 02:55 | disposition home or self-care (01) ==
LOC: ED 01:29
DX: S20.211A Contusion of right front wall of thorax, initial encounter (principal); W18.2XXA Fall in (into) shower or empty bathtub, initial encounter; Y93.E1 Activity, personal bathing and showering; Y92.002 Bathroom of unspecified non-institutional (private) residence as the place of occurrence of the external cause; Z79.891 Long term (current) use of opiate analgesic; Z72.0 Tobacco use
CPT/HCPCS: 71046; 99283; 99291; A9270-GY

== ENCOUNTER 2023-11-13 01:49 | Emergency (ER) | payer MEDICARE ==
[2023-11-13 02:02] VITALS: BP 118/82; PULSE 107; RESP 17; TEMP 97.4; O2SAT 97
--- NOTE | 2023-11-13 02:24 | ERPHSYRPT ---
- History of Present Illness Time Seen by Provider: 11/13/23 02:23 Source: patient Exam Limitations: no limitations Patient Subjective Stated Complaint: C/O left knee pain. Patient states she stepped out of her shower approx 2 hours ago and felt her knee "pull and pop." Triage Nursing Assessment: Patient ambulated back to ER. She is alert and oriented. No SOB. Skin tone normal. Physician History: 42-year-old female presents to emergency department for evaluation of left knee pain. Patient states approximately 2 hours ago she was stepping out of the shower when she felt a "pop" in her left knee. Pain described as an ache that is localized. No radiation. Pain worse with movement and palpation as well as weightbearing. Pain improved with rest. No falls. No trauma. No fever. Patient otherwise feels well. She voices no other complaints or concerns at this time. Patient self administered a Percocet 7.5 prior to arrival. Portions of this note were created with voice recognition technology. There may be grammatical, spelling, punctuation or sound alike errors Method of Injury: unknown Occurred: just prior to arrival Quality: constant Severity of Pain-Max: moderate Severity of Pain-Current: mild Lower Extremities Pain: knee: left Modifying Factors: Improves With: movement Associated Symptoms: none Allergies/Adverse Reactions: diazepam [From Valium] Allergy (Mild, Verified 11/13/23 01:54) sertraline [From Zoloft] Allergy (Mild, Verified 11/13/23 01:54) sulfamethoxazole [From Bactrim] Allergy (Mild, Verified 11/13/23 01:54) trimethoprim [From Bactrim] Allergy (Mild, Verified 11/13/23 01:54) Home Medications: Oxycodone HCl/Acetaminophen [Oxycodone-Acetaminophn 7.5-325] 1 tab PO TID 04/21/23 [History] Hx Tetanus, Diphtheria Vaccination/Date Given: Yes Hx Influenza Vaccination/Date Given: No Hx Pneumococcal Vaccination/Date Given: No Immunizations Up to Date: Yes Travel Risk - International Travel Have you traveled outside of the country in past 3 weeks: No - Emerging Infectious Disease Are you exhibiting symptoms associated with any current EIDs: No Symptoms: Joint Pain - Review of Systems Constitutional: No Symptoms, No Fever, No Chills Eyes: No Symptoms Ears, Nose, & Throat: No Symptoms Respiratory: No Symptoms, No Cough, No Dyspnea Cardiac: No Symptoms, No Chest Pain, No Edema, No Syncope Abdominal/Gastrointestinal: No Symptoms, No Abdominal Pain, No Nausea, No Vomiting, No Diarrhea Genitourinary Symptoms: No Symptoms, No Dysuria Musculoskeletal: No Symptoms, No Back Pain, No Neck Pain Skin: No Symptoms, No Rash Neurological: No Symptoms, No Dizziness, No Focal Weakness, No Sensory Changes Psychological: No Symptoms Endocrine: No Symptoms Hematologic/Lymphatic: No Symptoms Immunological/Allergic: No Symptoms All Other Systems: Reviewed and Negative - Past Medical History Pertinent Past Medical History: Yes Neurological History: No Pertinent History ENT History: No Pertinent History Cardiac History: No Pertinent History Respiratory History: No Pertinent History Endocrine Medical History: No Pertinent History Musculoskeletal History: Degenerative Disk Disease, Osteoarthritis, Other GI Medical History: Gallbladder Disease History: No Pertinent History Psycho-Social History: No Pertinent History Female Reproductive Disorders: No Pertinent History Other Medical History: back strains - Past Surgical History Past Surgical History: Yes Neuro Surgical History: No Pertinent History Cardiac: No Pertinent History Respiratory: No Pertinent History Gastrointestinal: Cholecystectomy Genitourinary: No Pertinent History Musculoskeletal: No Pertinent History Female Surgical History: Tubal Ligation, Other Other Surgical History: R ovary removed. uterine ablation, lt ovarian cyst - Female History Hx Now: No - Social History Smoking Status: Current every day smoker How long have you smoked: 28 yrs Exposure to second hand smoke: Yes Drug Use: none Patient Lives Alone: No - Nursing Vital Signs Nursing Vital Signs: Initial Vital Signs Temperature 97.4 F 11/13/23 01:54 Pulse Rate 107 H 11/13/23 01:54 Respiratory Rate 17 11/13/23 01:54 Blood Pressure 118/82 11/13/23 01:54 O2 Sat by Pulse Oximetry 97 11/13/23 01:54 Pain Scale Pain Intensity 8 - Physical Exam General Appearance: no apparent distress, alert Eyes, Ears, Nose, Throat Exam: moist mucous membranes Neck Exam: non-tender, supple Cardiovascular/Respiratory Exam: chest non-tender, normal breath sounds, regular rate/rhythm, no respiratory distress Gastrointestinal/Abdominal Exam: non-tender, guarding Back Exam: normal inspection, No vertebral tenderness Hips Exam: bilateral: non-tender, normal inspection, normal range of motion, no evidence of injury Legs Exam: bilateral leg: non-tender, normal inspection, normal range of motion, no evidence of injury, other (Homans' sign negative bilaterally) Knees Exam: left knee: pain, other (The involved extremities neurovascular tact distally compartments are soft cap refill less than 2 seconds. All knee ligaments are stable. No extensor lag. Straight leg raise within normal limits.) Ankle Exam: bilateral ankle: non-tender, normal inspection, normal range of motion, no evidence of injury Foot Exam: bilateral foot: non-tender, normal inspection, normal range of motion, no evidence of injury Neuro/Tendon Exam: normal sensation, normal motor functions Mental Status Exam: alert, oriented x 3, cooperative Skin Exam: normal color, warm, dry SpO2 Interpretation: normal SpO2: 97 O2 Delivery: Room Air - Course Nursing assessment & vital signs reviewed: Yes - Radiology Exams Knee X-ray Interpretation: Interpreted by me (No fracture dislocations.) Ordered Tests: Active Orders 24 hr Category Date Time Status KNEE (3 VIEWS) Stat Exams 11/13/23 02:02 Taken - Progress Progress: improved Progress Note: 42-year-old female presents to our ED for evaluation of pain to her left knee. Patient felt a pop while stepping out of the shower 2 hours prior to arrival. Physical exam shows the knee ligaments are stable. No extensor lag. Extensor mechanism intact. Negative Homans' sign. The involved extremities neurovascular tact distally compartments are soft cap refill less than 2 seconds. X-ray negative for fracture dislocation. Patient requesting a knee brace. We do not have knee braces available. Patient refused Toradol as she states "Toradol does nothing for her". Patient agreed to axillary crutches. Bilateral axillary crutches provided. Patient referred to the orthopedic clinic. Patient agrees to follow-up with orthopedic clinic tomorrow as discussed. Portions of this note were created with voice recognition technology. There may be grammatical, spelling, punctuation or sound alike errors Complex problem addresses moderate acute complicated. No critical care time. Complex of data reviewed and analyzed is moderate. Test ordered test reviewed results analyzed and correlated clinically. Dr. Thacker independently reviewed the x-ray of the left knee. Risk of complication and or risk of morbidity/mortality patient management is moderate. A prescription for Toradol forwarded to patient's pharmacy. Vital stable. Time spent to discharge patient is approximately 10 minutes. Plan of care established for shared decision making. No social determinants of health present impede follow-up. Portions of this note were created with voice recognition technology. There may be grammatical, spelling, punctuation or sound alike errors 11/13/23 02:44 Counseled pt/family regarding: diagnosis, need for follow-up, rad results - Departure Departure Disposition: Home Clinical Impression: Knee pain, left Condition: Stable Critical Care Time: No Referrals: Dennys Mckenzie [Primary Care Provider] - Follow up/PCP as directed Instructions: Knee Pain ED Additional Instructions: Discharge/Care Plan LILI PAZ was seen on 11/13/23 in the Emergency Room. The patient was counseled regarding Diagnosis,Lab results, Imaging studies, need for follow up and when to return to the Emergency Room. Prescriptions given: Discharge Note I have spoken with the patient and/or caregivers. I have explained the patient's condition, diagnosis and treatment plan based on the information available to me at this time. I have answered the patient's and/or caregiver's questions and a ddressed any concerns. The patient and/or caregivers have as good understanding of the patient's diagnosis, condition and treatment plan as can be expected at this point. The vital signs have been stable. The patient's condition is stable and appropriate for discharge from the emergency department. The patient will pursue further outpatient evaluation with the primary care physician or other designated or consulting physician as outlined in the discharge instructions. The patient and/or caregivers are agreeable to this plan of care and follow-up instructions have been explained in detail. The patient and/or caregivers have received these instruction. The patient/and or caregivers are aware that any significant change in condition or worsening of symptoms should prompt an immediate return to this or the closest emergency department or call 911. Prescriptions: Ketorolac Trometh 10 mg Tab [TORAdol 10 MG TABLET] 10 mg PO TID 5 Days #15 tablet Outpatient Orders: Ortho Referral Time Frame: 1 Day, Facility: [facility], Location: [facility]
[2023-11-13] MEDS ORDERED: TORAdol 30 mg Injection ONE (02:39)
[2023-11-13] MEDS: TORAdol 30 mg Injection IM ONE (02:42)
--- NOTE | 2023-11-13 08:59 | XRAY ---
Indication: Pain following injury. Comparison: None 3 view left knee obtained. No bony, articular, or soft tissue abnormalities.
== END 2023-11-13 02:56 | disposition home or self-care (01) ==
LOC: ED 01:49
DX: M25.562 Pain in left knee (principal); Z79.891 Long term (current) use of opiate analgesic; Z72.0 Tobacco use
CPT/HCPCS: 73562; 99283; J1885; L1830

== ENCOUNTER 2023-11-21 20:58 | Emergency (ER) | payer SELFPAY ==
[2023-11-21 21:16] VITALS: BP 133/87; PULSE 95; RESP 18; TEMP 98.3; O2SAT 98
--- NOTE | 2023-11-21 23:31 | ERPHSYRPT ---
- History of Present Illness Time Seen by Provider: 11/21/23 21:14 Source: patient Exam Limitations: no limitations Patient Subjective Stated Complaint: R shoulder pain x multiple weeks- pt could not give me a time frame for when pain started. Triage Nursing Assessment: pt ambulatory to bed by self with friend at beside, pt alert and oriented x3, skin pwd, pt c/o R shoulder pain x multiple weeks, pt states her shoulder has been "popping" all day today and every time it "pops" the pain gets worse, pt states she has tried aleve and motrin today with no relief, pt also states that she took a leftover norco 7.5 mg tablet yesterday with no relief. pt did inform staff that she is no longer under a pain contract so does not have any prescribed medication she takes. Physician History: 42-year-old presented to the ER with complaint of right shoulder pain for the last 2 weeks after she was getting off of the truck, slipped and stopped with outstretched hand and gustavo her right shoulder. Patient reports since then having moderate to severe sharp pain in multiple clicks/subluxation with progressive worsening. She has been taking [place] and Percocet at home with partial relief. She took her leftover [place]. Denies any numbness or tingling/weakness of right upper extremity. Allergies/Adverse Reactions: adhesive tape Allergy (Mild, Verified 11/21/23 21:14) Blisters diazepam [From Valium] Allergy (Mild, Verified 11/21/23 21:14) sertraline [From Zoloft] Allergy (Mild, Verified 11/21/23 21:14) sulfamethoxazole [From Bactrim] Allergy (Mild, Verified 11/21/23 21:14) trimethoprim [From Bactrim] Allergy (Mild, Verified 11/21/23 21:14) Home Medications: Oxycodone HCl/Acetaminophen [Oxycodone-Acetaminophn 7.5-325] 1 tab PO TID 04/21/23 [History] Hx Tetanus, Diphtheria Vaccination/Date Given: Yes Hx Influenza Vaccination/Date Given: No Hx Pneumococcal Vaccination/Date Given: No Travel Risk - International Travel Have you traveled outside of the country in past 3 weeks: No - Emerging Infectious Disease Are you exhibiting symptoms associated with any current EIDs: No Symptoms: Joint Pain - Review of Systems Constitutional: No Symptoms Ears, Nose, & Throat: No Symptoms Respiratory: No Symptoms Cardiac: No Symptoms Abdominal/Gastrointestinal: No Symptoms Genitourinary Symptoms: No Symptoms Musculoskeletal: Fall, Injury, Joint Pain Skin: No Symptoms Neurological: No Symptoms Endocrine: No Symptoms - Past Medical History Pertinent Past Medical History: Yes Neurological History: No Pertinent History ENT History: No Pertinent History Cardiac History: No Pertinent History Respiratory History: No Pertinent History Endocrine Medical History: No Pertinent History Musculoskeletal History: Degenerative Disk Disease, Osteoarthritis, Other GI Medical History: Gallbladder Disease History: No Pertinent History Psycho-Social History: No Pertinent History Female Reproductive Disorders: No Pertinent History Other Medical History: back strains - Past Surgical History Past Surgical History: Yes Neuro Surgical History: No Pertinent History Cardiac: No Pertinent History Respiratory: No Pertinent History Gastrointestinal: Cholecystectomy Genitourinary: No Pertinent History Musculoskeletal: No Pertinent History Female Surgical History: Tubal Ligation, Other Other Surgical History: R ovary removed. uterine ablation, lt ovarian cyst - Female History Hx Last Menstrual Period: uterine ablation- 2011 Hx Now: No - Social History Smoking Status: Current every day smoker How long have you smoked: 28 yrs Exposure to second hand smoke: Yes Drug Use: none Patient Lives Alone: No - Social Determinants of Health Will the patient participate in the screening: Yes Do you worry about a steady place to live?: No Do you have any problems with any of the following?: No known problems In the past 12 months,have you had to go without utilities?: No Transportation Issues: No Has anyone in your support network made you feel unsafe?: No Have you or anyone in your house had to go without enough: No - Nursing Vital Signs Nursing Vital Signs: Initial Vital Signs Temperature 98.3 F 11/21/23 21:04 Pulse Rate 95 H 11/21/23 21:04 Respiratory Rate 18 11/21/23 21:04 Blood Pressure 133/87 11/21/23 21:04 O2 Sat by Pulse Oximetry 98 11/21/23 21:04 Pain Scale Pain Intensity 8 - Physical Exam General Appearance: no apparent distress Neck Exam: normal inspection, non-tender, supple, full range of motion Cardiovascular/Respiratory Exam: normal breath sounds, regular rate/rhythm Shoulder Exam: normal inspection, limited ROM (Limited range of motion above shoulder on the right. Mild restricted circumduction. Restricted external rotation. Negative empty can test.), soft tissue tenderness, No swelling Elbow/Forearm Exam: normal inspection, non-tender, no evidence of injury Wrist Exam: normal inspection, non-tender, no evidence of injury Hand Exam: normal inspection, non-tender Neuro/Tendon Exam: normal sensation, normal motor functions Mental Status Exam: alert, oriented x 3, cooperative SpO2 Interpretation: normal SpO2: 98 O2 Delivery: Room Air Ordered Tests: Active Orders 24 hr Category Date Time Status AMA [Release AMA] OM.NOW Care 11/21/23 22:10 Completed - Progress Progress: unchanged Progress Note: 11/21/23 22:29 42-year-old is evaluated in the ER for right shoulder pain after she injured 2 weeks ago while getting out of the truck with outstretched hand and gustavo shoulder. Has some limitation range of motion. I have recommended x-rays which patient does not want to get it done. Recommended Toradol which she declined and wants morphine/Dilaudid which she was told is not indicated. Then she started bagging for narcotic pills. I have seen patient in the past as well with other pain symptoms wanting pain medications. Patient has a pain contract with pain management and should not be out of her pain medication. Patient did not like that she is not getting narcotics and decided to leave. Patient states "it is wastage of my time to have x-rays or any nonnarcotic pain medication which do not work". Counseled pt/family regarding: diagnosis, need for follow-up - Departure Departure Disposition: AMA Clinical Impression: Right shoulder strain Condition: Stable Critical Care Time: No Referrals: Dennys Mckenzie [Primary Care Provider] - Follow up/PCP as directed
== END 2023-11-21 22:08 | disposition left against medical advice (07) ==
LOC: ED 20:58
DX: S46.911A Strain of unspecified muscle, fascia and tendon at shoulder and upper arm level, right arm, initial encounter (principal); X50.0XXA Overexertion from strenuous movement or load, initial encounter; Z79.891 Long term (current) use of opiate analgesic; Z72.0 Tobacco use
CPT/HCPCS: 99281

== ENCOUNTER 2024-01-15 08:43 | Emergency (ER) | payer MEDICARE, OTHER ==
[2024-01-15 09:00] VITALS: TEMP 98.1; O2SAT 98
--- NOTE | 2024-01-15 09:11 | ERPHSYRPT ---
- History of Present Illness Time Seen by Provider: 01/15/24 08:57 Historian: patient Exam Limitations: no limitations Patient Subjective Stated Complaint: patient brought self to ED complaining of lower right abdominal pain. rates pain 10/10. Triage Nursing Assessment: Pt brought self to ED with 10/10 right lower abdominal pain and that it wraps around into back. States pain started 4 days ago. Last BM last night. N/D. gait steady, tachycardic, doesn't appear to be in any distress. Physician History: Since 4 days ago pt has had sharp constant RLQ abdominal pain up to 10/10 in severity with nausea; diarrhea for the past 2 days. Pt denies fever, chest pain, shortness of air, vomiting. Allergies/Adverse Reactions: adhesive tape Allergy (Mild, Verified 11/21/23 21:14) Blisters diazepam [From Valium] Allergy (Mild, Verified 01/15/24 09:02) sertraline [From Zoloft] Allergy (Mild, Verified 11/21/23 21:14) sulfamethoxazole [From Bactrim] Allergy (Mild, Verified 11/21/23 21:14) trimethoprim [From Bactrim] Allergy (Mild, Verified 11/21/23 21:14) Home Medications: No Reportable Medications [No Reported Medications] 01/15/24 [History] Hx Tetanus, Diphtheria Vaccination/Date Given: Yes Hx Influenza Vaccination/Date Given: No Hx Pneumococcal Vaccination/Date Given: No Travel Risk - International Travel Have you traveled outside of the country in past 3 weeks: No - Emerging Infectious Disease Are you exhibiting symptoms associated with any current EIDs: No Symptoms: Joint Pain - Review of Systems Constitutional: No Fever Respiratory: No Dyspnea Cardiac: No Chest Pain Abdominal/Gastrointestinal: Abdominal Pain, Nausea, Diarrhea, No Vomiting Neurological: No Headache - Past Medical History Pertinent Past Medical History: Yes Neurological History: No Pertinent History ENT History: No Pertinent History Cardiac History: No Pertinent History Respiratory History: No Pertinent History Endocrine Medical History: No Pertinent History Musculoskeletal History: Degenerative Disk Disease, Osteoarthritis, Other GI Medical History: Gallbladder Disease History: No Pertinent History Psycho-Social History: No Pertinent History Female Reproductive Disorders: No Pertinent History Other Medical History: back strains - Past Surgical History Past Surgical History: Yes Neuro Surgical History: No Pertinent History Cardiac: No Pertinent History Respiratory: No Pertinent History Gastrointestinal: Cholecystectomy Genitourinary: No Pertinent History Musculoskeletal: No Pertinent History Female Surgical History: Tubal Ligation, Other Other Surgical History: R ovary removed. uterine ablation, lt ovarian cyst, - Female History Hx Now: No (ablation) - Social History Smoking Status: Current every day smoker How long have you smoked: 28 yrs Exposure to second hand smoke: Yes Drug Use: none Patient Lives Alone: No - Social Determinants of Health Will the patient participate in the screening: Yes Do you worry about a steady place to live?: No Do you have any problems with any of the following?: No known problems In the past 12 months,have you had to go without utilities?: No Transportation Issues: No Has anyone in your support network made you feel unsafe?: No Have you or anyone in your house had to go without enough: No - Nursing Vital Signs Nursing Vital Signs: Initial Vital Signs Temperature 98.1 F 01/15/24 08:47 Pulse Rate 111 H 01/15/24 08:47 Blood Pressure 110/79 01/15/24 08:47 O2 Sat by Pulse Oximetry 98 01/15/24 08:47 Pain Scale Pain Intensity 6 - Physical Exam General Appearance: alert Eye Exam: eyes nml inspection Ears, Nose, Throat Exam: TMs normal, pharynx normal Neck Exam: normal inspection Respiratory Exam: lungs clear Cardiovascular Exam: normal heart sounds Gastrointestinal/Abdomen Exam: normal bowel sounds Extremity Exam: No pedal edema Neurologic Exam: alert, cooperative Skin Exam: warm, dry SpO2 Interpretation: normal SpO2: 98 O2 Delivery: Room Air - Course Nursing assessment & vital signs reviewed: Yes - CT Exams Abdomen/Pelvis CT Interpretation: Discussed w/radiologist (Continued normal CT abdomen/pelvis without contrast exam.), Tele-radiologist Report Ordered Tests: Active Orders 24 hr Category Date Time Status IV Insertion STAT Care 01/15/24 09:03 Active ABDOMEN AND PELVIS W/0 CONTRAS [CT] Stat Exams 01/15/24 09:04 Completed AMYLASE Stat Lab 01/15/24 09:15 Completed CBC W DIFF Stat Lab 01/15/24 09:15 Completed CMP Stat Lab 01/15/24 09:15 Completed HCG QUALITATIVE, SERUM Stat Lab 01/15/24 09:15 Completed LIPASE Stat Lab 01/15/24 09:15 Completed UA W/RFX UR CULTURE Stat Lab 01/15/24 09:05 Completed Medication Summary Discontinued Medications Generic Name Dose Route Start Last Admin Trade Name Mario PRN Reason Stop Dose Admin Sodium Chloride 1,000 mls @ 999 mls/hr 01/15/24 09:03 01/15/24 09:15 Sodium Chloride 0.9% 1000 Ml IV 01/15/24 10:03 999 mls/hr .Q1H1M STA Administration Sodium Chloride Confirm 01/15/24 09:13 Sodium Chloride 0.9% 1000 Ml Administered 01/15/24 09:14 Dose 1,000 mls @ ud .ROUTE .STK-MED ONE Acetaminophen 1,000 mg in 100 mls @ 400 mls/hr 01/15/24 09:39 01/15/24 09:43 Ofirmev IV 01/15/24 09:53 400 mls/hr 1HRPRIOR ONE Administration Acetaminophen Confirm 01/15/24 09:41 Ofirmev Administered 01/15/24 09:42 Dose 100 mls @ ud IV .STK-MED ONE Ketorolac Tromethamine 30 mg 01/15/24 10:07 01/15/24 10:17 Ketorolac Tromethamine 30 Mg/Ml Inj IV 01/15/24 10:08 Not Given STAT ONE Ketorolac Tromethamine Confirm 01/15/24 10:13 Ketorolac Tromethamine 30 Mg/Ml Inj Administered 01/15/24 10:14 Dose 30 mg .ROUTE .STK-MED ONE Morphine Sulfate 4 mg 01/15/24 09:03 01/15/24 09:16 Morphine Sulfate 4 Mg/Ml Injection IV 01/15/24 09:04 4 mg STAT ONE Administration Morphine Sulfate Confirm 01/15/24 09:13 Morphine Sulfate 4 Mg/Ml Injection Administered 01/15/24 09:14 Dose 4 mg .ROUTE .STK-MED ONE Ondansetron HCl 4 mg 01/15/24 09:03 01/15/24 09:15 Ondansetron Hcl 4 Mg/2 Ml Vial IV 01/15/24 09:04 4 mg STAT ONE Administration Ondansetron HCl Confirm 01/15/24 09:13 Ondansetron Hcl 4 Mg/2 Ml Vial Administered 01/15/24 09:14 Dose 4 mg .ROUTE .STK-MED ONE Lab/Rad Data: Laboratory Result Diagrams 01/15/24 09:15 01/15/24 09:15 Laboratory Results 01/15/24 01/15/24 01/15/24 Range/Units 09:15 09:15 09:15 WBC 6.0 (3.98-10.04) x10^3/uL RBC 4.37 (3.93-5.22) x10^6/uL Hgb 13.4 (11.2-15.7) g/dL Hct 39.8 (34.1-44.9) % MCV 91.1 (79.4-94.8) fL MCH 30.7 (25.6-32.2) pg MCHC 33.7 (32.2-35.5) g/dL RDW 12.4 (11.7-14.4) % Plt Count 228 (182-369) x10^3/uL MPV 9.6 (9.4-12.3) fL Gran % 49.9 (34.0-71.1) % Immature Gran % (Auto) 0.2 (0.001-0.429) % Nucleat RBC Rel Count 0.0 (0.00-0.2) % Eos # (Auto) 0.10 (0.04-0.36) x10^3/uL Immature Gran # (Auto) 0.01 (0.001-0.031) x10^3u/L Absolute Lymphs (auto) 2.49 (1.18-3.74) x10^3/uL Absolute Monos (auto) 0.35 (0.24-0.86) x10^3/uL Absolute Nucleated RBC 0.00 (0.00-0.012) x10^3u/L Lymphocytes % 41.6 (19.3-51.7) % Monocytes % 5.8 (4.7-12.5) % Eosinophils % 1.7 (0.7-5.8) % Basophils % 0.8 (0.1-1.2) % Absolute Granulocytes 2.99 (1.56-6.13) x10^3/uL Basophils # 0.05 (0.01-0.08) x10^3/uL Sodium 140 (135-145) mmol/L Potassium 3.5 (3.5-5.1) mmol/L Chloride 104 (98-107) mmol/L Carbon Dioxide 27 (22-30) mmol/L Anion Gap 12.2 (5-15) MEQ/L BUN 7 (7-17) mg/dL Creatinine 0.72 (0.52-1.04) mg/dL Estimated GFR 107.7 ML/MIN Glucose 83 (74-106) mg/dL Calcium 9.4 (8.4-10.2) mg/dL Total Bilirubin 0.20 (0.2-1.3) mg/dL AST 18 (14-36) U/L ALT 17 (0-35) U/L Alkaline Phosphatase 88 (38-126) U/L Serum Total Protein 7.0 (6.3-8.2) g/dL Albumin 4.3 (3.5-5.0) g/dL Amylase 83 (30-110) U/L Lipase 76 (23-300) U/L Serum HCG, Qual NEGATIVE (NEGATIVE) Urine Color (Yellow) Urine Appearance (Clear) Urine pH (4.6-8.0) Ur Specific [place] (1.005-1.030) Urine Protein (Negative) Urine Glucose (UA) (Negative) mg/dL Urine Ketones (Negative) Urine Blood (Negative) Urine Nitrite (Negative) Urine Bilirubin (Negative) Urine Urobilinogen (0.2) mg/dL Ur Leukocyte Esterase (Negative) U Hyaline Cast (Auto) (0-2) /LPF Urine Microscopic RBC (0-5) /HPF Urine Microscopic WBC (0-5) /HPF Ur Epithelial Cells (None Seen) /HPF Urine Bacteria (None Seen) /HPF Urine Culture Reflexed (NO) 01/15/24 Range/Units 09:05 WBC (3.98-10.04) x10^3/uL RBC (3.93-5.22) x10^6/uL Hgb (11.2-15.7) g/dL Hct (34.1-44.9) % MCV (79.4-94.8) fL MCH (25.6-32.2) pg MCHC (32.2-35.5) g/dL RDW (11.7-14.4) % Plt Count (182-369) x10^3/uL MPV (9.4-12.3) fL Gran % (34.0-71.1) % Immature Gran % (Auto) (0.001-0.429) % Nucleat RBC Rel Count (0.00-0.2) % Eos # (Auto) (0.04-0.36) x10^3/uL Immature Gran # (Auto) (0.001-0.031) x10^3u/L Absolute Lymphs (auto) (1.18-3.74) x10^3/uL Absolute Monos (auto) (0.24-0.86) x10^3/uL Absolute Nucleated RBC (0.00-0.012) x10^3u/L Lymphocytes % (19.3-51.7) % Monocytes % (4.7-12.5) % Eosinophils % (0.7-5.8) % Basophils % (0.1-1.2) % Absolute Granulocytes (1.56-6.13) x10^3/uL Basophils # (0.01-0.08) x10^3/uL Sodium (135-145) mmol/L Potassium (3.5-5.1) mmol/L Chloride (98-107) mmol/L Carbon Dioxide (22-30) mmol/L Anion Gap (5-15) MEQ/L BUN (7-17) mg/dL Creatinine (0.52-1.04) mg/dL Estimated GFR ML/MIN Glucose (74-106) mg/dL Calcium (8.4-10.2) mg/dL Total Bilirubin (0.2-1.3) mg/dL AST (14-36) U/L ALT (0-35) U/L Alkaline Phosphatase (38-126) U/L Serum Total Protein (6.3-8.2) g/dL Albumin (3.5-5.0) g/dL Amylase (30-110) U/L Lipase (23-300) U/L Serum HCG, Qual (NEGATIVE) Urine Color Yellow (Yellow) Urine Appearance Clear (Clear) Urine pH 5.5 (4.6-8.0) Ur Specific [place] 1.020 (1.005-1.030) Urine Protein Negative (Negative) Urine Glucose (UA) Negative (Negative) mg/dL Urine Ketones Negative (Negative) Urine Blood Negative (Negative) Urine Nitrite Negative (Negative) Urine Bilirubin Negative (Negative) Urine Urobilinogen 1.0 A (0.2) mg/dL Ur Leukocyte Esterase Negative (Negative) U Hyaline Cast (Auto) NONE SEEN (0-2) /LPF Urine Microscopic RBC 0-2 (0-5) /HPF Urine Microscopic WBC 0-2 (0-5) /HPF Ur Epithelial Cells None Seen (None Seen) /HPF Urine Bacteria None Seen (None Seen) /HPF Urine Culture Reflexed NO (NO) - Progress Progress: improved Counseled pt/family regarding: lab results, diagnosis, need for follow-up, rad results Medical Desision Making - Diagnostic Testing Diagnostic test were ordered, analyzed, and reviewed by me: Yes Radiological Interpretation: Discussed w/ radiologist - Departure Departure Disposition: Home Clinical Impression: Abdominal pain, Diarrhea Condition: Stable Critical Care Time: No Referrals: Dennys Mckenzie [NON-STAFF PHY W/O PRIVILEGES] - Follow up/PCP as directed Instructions: Abdominal Pain, Adult ED, Diarrhea, Adult ED Additional Instructions: Follow up with private doctor today. Start clear liquids for the next 12 hours followed by a soft bland diet.
[2024-01-15] MEDS ORDERED: MORPHINE SULFATE 4 MG INJ ONE (09:13)
[2024-01-15] MEDS ORDERED: Zofran 4 MG/2 ML VIAL ONE (09:13)
[2024-01-15] MEDS ORDERED: Sodium Chloride 0.9% 1000 ML 1,000 ML ONE (09:13)
[2024-01-15] MEDS: Sodium Chloride 0.9% 1000 ML 1,000 ML IV STA (09:15)
[2024-01-15] MEDS: Zofran 4 MG/2 ML VIAL IV ONE (09:15)
[2024-01-15] MEDS: MORPHINE SULFATE 4 MG INJ IV ONE (09:16)
[2024-01-15 09:21] LABS: Appearance Clear (Clear); Bacteria None Seen /HPF (None Seen); Bilirubin Negative (Negative); Blood Negative (Negative); Epithelial Cells None Seen /HPF (None Seen); Glucose, Urine Negative (Negative); Hyaline Casts NONE SEEN /LPF (0-2); Ketones Negative (Negative); Leukocyte Esterase Negative (Negative); Nitrite Negative (Negative); Ph 5.5 (4.6-8.0); Protein,Urine Dip Negative (Negative); RBC 0-2 /HPF (0-5); WBC 0-2 /HPF (0-5)
[2024-01-15 09:28] LABS: ADD URINE CULTURE? NO (NO)
[2024-01-15 09:29] LABS: Absolute Neutrophil Ct (ANC) 2.99 x10^3/uL (1.56-6.13); BASOPHIL % 0.8 % (0.1-1.2); Basophil (Absolute #) 0.05 x10^3/uL (0.01-0.08); Eosinophil % 1.7 % (0.7-5.8); Hematocrit 39.8 % (34.1-44.9); Hemoglobin 13.4 g/dL (11.2-15.7); IMMATURE GRAN # 0.01 x10^3u/L (0.001-0.031); IMMATURE GRAN % 0.2 % (0.001-0.429); Lymphocyte (Absolute #) 2.49 x10^3/uL (1.18-3.74); Lymphocytes % 41.6 % (19.3-51.7); Mean Cell Volume 91.1 fL (79.4-94.8); Mean Corpuscular Hemoglobin 30.7 pg (25.6-32.2); Mean Corpuscular Hgb Concent. 33.7 g/dL (32.2-35.5); Mean Platelet Volume 9.6 fL (9.4-12.3); Monocyte (Absolute #) 0.35 x10^3/uL (0.24-0.86); Monocytes % 5.8 % (4.7-12.5); Neutrophil % 49.9 % (34.0-71.1); Platelet Count 228 x10^3/uL (182-369); Red Blood Count 4.37 x10^6/uL (3.93-5.22); Red Cell Distribution Width 12.4 % (11.7-14.4)
[2024-01-15 09:34] LABS: ALBUMIN 4.3 g/dL (3.5-5.0); ANION GAP 12.2 MEQ/L (5-15); BILIRUBIN,TOTAL 0.2 mg/dL (0.2-1.3); Calcium 9.4 mg/dL (8.4-10.2); Creatinine 1 0.72 mg/dL (0.52-1.04); EST GLOMERULAR FILTRATION RATE 107.7 ML/MIN; Potassium 3.5 mmol/L (3.5-5.1)
[2024-01-15 09:38] LABS: HCG SERUM TEST NEGATIVE (NEGATIVE)
[2024-01-15] MEDS ORDERED: OFIRMEV 100 ML IV ONE (09:41)
[2024-01-15] MEDS: OFIRMEV 1,000 MG/100 ML ML IV ONE (09:43)
[2024-01-15 09:49] VITALS: PULSE 79
[2024-01-15] MEDS ORDERED: TORAdol 30 mg Injection ONE (10:13)
[2024-01-15] MEDS: TORAdol 30 mg Injection IV ONE (10:17)
--- NOTE | 2024-01-15 10:17 | XRAY ---
Indication: Right lower quadrant pain 3 days. Multiple contiguous axial images obtained through abdomen and pelvis without contrast. Comparison: June 10, 2023 Lung bases remain clear. Heart not enlarged. Noncontrasted stomach and bowel loops appear nonobstructed again with normal appendix. Again cholecystectomy. No free fluid/air. Remaining liver, pancreas, spleen, adrenal glands, kidneys, ureters, bladder, uterus, and aorta are unremarkable for noncontrast exam. Osseous structures intact. No ventral or inguinal hernias. Impression: Continued normal CT abdomen/pelvis without contrast exam.
[2024-01-15 10:27] VITALS: BP 97/65
== END 2024-01-15 10:52 | disposition home or self-care (01) ==
LOC: ED 08:43
DX: R10.31 Right lower quadrant pain (principal); R19.7 Diarrhea, unspecified; R11.0 Nausea; Z72.0 Tobacco use
CPT/HCPCS: 36000; 36415; 74176; 80053; 81001; 82150; 83690; 84703; 85025; 96360; 96365; 96374; 96375; 99284; J1885; J2270; J2405

== ENCOUNTER 2024-01-19 02:21 | Emergency (ER) | payer MEDICARE, OTHER ==
[2024-01-19 03:16] VITALS: RESP 16; TEMP 98
--- NOTE | 2024-01-19 03:19 | ERPHSYRPT ---
- History of Present Illness Time Seen by Provider: 01/19/24 03:18 Source: patient, family Exam Limitations: no limitations Patient Subjective Stated Complaint: pt states she has been having pain in her lt hip for last 2 days. denies any fall or injury. Triage Nursing Assessment: pt alert and oriented, answers questions approp. pt ambulates back to room with limping gait noted. skin warm and dry. respirations nonlabored. pedal pulse and cap refill wnl. Physician History: Pt denies trauma but has had this type of pain off and on for the past 20 years after childbirth in her left hip with motion. No hx trauma. No fever. brii diet Ok without vomiting. Pt declines toradol - states it never works. But understands any narcotic is just an ER one time use, and not advisible as a chronic pain relief med. Abd soft nontender without peritoneal signs or masses. tender left lateral hip without flucuance or erytehma or skin lesions. Pain reproduced by left hip rotation also. . No vag DC or pelvic symptoms. discussed risks/beenfits of testing/Tx with pt and family including [place], CT, HCG, CBC, Sed rate, CMP , and UA and they wish to proceed. These are ordered. Results discussed with pt and family. Method of Injury: unknown Occurred: days ago Quality: constant, sharpness Severity of Pain-Max: moderate Severity of Pain-Current: moderate Lower Extremities Pain: hip: left Modifying Factors: Improves With: movement Associated Symptoms: none Allergies/Adverse Reactions: adhesive tape Allergy (Mild, Verified 01/19/24 03:16) Blisters diazepam [From Valium] Allergy (Mild, Verified 01/19/24 03:16) sertraline [From Zoloft] Allergy (Mild, Verified 01/19/24 03:16) sulfamethoxazole [From Bactrim] Allergy (Mild, Verified 01/19/24 03:16) trimethoprim [From Bactrim] Allergy (Mild, Verified 01/19/24 03:16) Home Medications: No Reportable Medications [No Reported Medications] 01/15/24 [History] Hx Tetanus, Diphtheria Vaccination/Date Given: Yes Hx Influenza Vaccination/Date Given: No Hx Pneumococcal Vaccination/Date Given: No Immunizations Up to Date: Yes Travel Risk - International Travel Have you traveled outside of the country in past 3 weeks: No - Emerging Infectious Disease Are you exhibiting symptoms associated with any current EIDs: No Symptoms: Joint Pain - Review of Systems Constitutional: No Fever, No Chills Eyes: No Symptoms Ears, Nose, & Throat: No Symptoms Respiratory: No Cough, No Dyspnea Cardiac: No Chest Pain, No Edema, No Syncope Abdominal/Gastrointestinal: No Abdominal Pain, No Nausea, No Vomiting, No Diarrhea Genitourinary Symptoms: No Dysuria Musculoskeletal: Joint Pain, No Back Pain, No Neck Pain, No Fall, No Injury Skin: No Rash Neurological: No Dizziness, No Focal Weakness, No Sensory Changes Psychological: No Symptoms Endocrine: No Symptoms Hematologic/Lymphatic: No Symptoms Immunological/Allergic: No Symptoms All Other Systems: Reviewed and Negative - Past Medical History Pertinent Past Medical History: Yes Neurological History: No Pertinent History ENT History: No Pertinent History Cardiac History: No Pertinent History Respiratory History: No Pertinent History Endocrine Medical History: No Pertinent History Musculoskeletal History: Degenerative Disk Disease, Osteoarthritis, Other GI Medical History: Gallbladder Disease History: No Pertinent History Psycho-Social History: No Pertinent History Female Reproductive Disorders: No Pertinent History Other Medical History: back strains - Past Surgical History Past Surgical History: Yes Neuro Surgical History: No Pertinent History Cardiac: No Pertinent History Respiratory: No Pertinent History Gastrointestinal: Cholecystectomy Genitourinary: No Pertinent History Musculoskeletal: No Pertinent History Female Surgical History: Tubal Ligation, Other Other Surgical History: R ovary removed. uterine ablation, lt ovarian cyst, - Female History Hx Last Menstrual Period: ablation Hx Now: No - Social History Smoking Status: Current every day smoker How long have you smoked: 28 yrs Exposure to second hand smoke: Yes Drug Use: none Patient Lives Alone: No - Social Determinants of Health Will the patient participate in the screening: Yes Do you worry about a steady place to live?: No Do you have any problems with any of the following?: No known problems In the past 12 months,have you had to go without utilities?: No Transportation Issues: No Has anyone in your support network made you feel unsafe?: No Have you or anyone in your house had to go without enough: No - Nursing Vital Signs Nursing Vital Signs: Initial Vital Signs Temperature 98.0 F 01/19/24 03:06 Pulse Rate 80 01/19/24 03:06 Respiratory Rate 16 01/19/24 03:06 Blood Pressure 114/79 01/19/24 03:06 O2 Sat by Pulse Oximetry 99 01/19/24 03:06 Pain Scale Pain Intensity [Left Hip] 10 Pain Intensity 10 - Physical Exam General Appearance: no apparent distress, alert Eyes, Ears, Nose, Throat Exam: moist mucous membranes Neck Exam: non-tender, supple Cardiovascular/Respiratory Exam: chest non-tender, normal breath sounds, regular rate/rhythm, no respiratory distress Gastrointestinal/Abdominal Exam: non-tender, guarding Back Exam: normal inspection, No vertebral tenderness Hips Exam: right: non-tender, normal inspection, normal range of motion, no evidence of injury, left: bone tenderness, pain, soft tissue tenderness Legs Exam: bilateral leg: non-tender, normal inspection, normal range of motion, no evidence of injury Knees Exam: bilateral knee: non-tender, normal inspection, normal range of motion, no evidence of injury Ankle Exam: bilateral ankle: non-tender, normal inspection, normal range of motion, no evidence of injury Foot Exam: bilateral foot: non-tender, normal inspection, normal range of motion, no evidence of injury DTR - Lower Extremities Exam: knee (R): 2+, knee (L): 2+, ankle (R): 2+, ankle (L): 2+ Neuro/Tendon Exam: normal sensation, normal motor functions, normal tendon functions Mental Status Exam: alert, oriented x 3, cooperative Skin Exam: normal color, warm, dry SpO2 Interpretation: normal SpO2: 99 O2 Delivery: Room Air - Course Nursing assessment & vital signs reviewed: Yes - CT Exams Left Lower Extremity CT Interpretation: Tele-radiologist Report, No Fracture, Other (no infectious process noted per rad reading) Ordered Tests: Active Orders 24 hr Category Date Time Status LOWER EXTREMITY WO CONTRAST [CT] Stat Exams 01/19/24 04:00 Completed CBC W DIFF Stat Lab 01/19/24 04:47 Completed CMP Stat Lab 01/19/24 04:47 Completed ESR [Erythrocyte Sedimentation Rate] Stat Lab 01/19/24 04:47 Completed HCG QUALITATIVE, SERUM Stat Lab 01/19/24 04:47 Completed UA W/RFX UR CULTURE Stat Lab 01/19/24 04:01 Ordered Medication Summary Discontinued Medications Generic Name Dose Route Start Last Admin Trade Name Freq PRN Reason Stop Dose Admin Hydrocodone Bitart/Acetaminophen 1 tablet 01/19/24 04:02 01/19/24 04:12 Hydrocodone/Acetamin 10-325 Mg Tablet PO 01/19/24 04:03 1 tablet STAT ONE Administration Hydrocodone Bitart/Acetaminophen Confirm 01/19/24 04:12 Hydrocodone/Acetamin 10-325 Mg Tablet Administered 01/19/24 04:13 Dose 1 tablet .ROUTE .STK-MED ONE Lab/Rad Data: Laboratory Result Diagrams 01/19/24 04:47 01/19/24 04:47 Laboratory Results 01/19/24 01/19/24 01/19/24 Range/Units 04:47 04:47 04:47 WBC (3.98-10.04) x10^3/uL RBC (3.93-5.22) x10^6/uL Hgb (11.2-15.7) g/dL Hct (34.1-44.9) % MCV (79.4-94.8) fL MCH (25.6-32.2) pg MCHC (32.2-35.5) g/dL RDW (11.7-14.4) % Plt Count (182-369) x10^3/uL MPV (9.4-12.3) fL Gran % (34.0-71.1) % Immature Gran % (Auto) (0.001-0.429) % Nucleat RBC Rel Count (0.00-0.2) % Eos # (Auto) (0.04-0.36) x10^3/uL Immature Gran # (Auto) (0.001-0.031) x10^3u/L Absolute Lymphs (auto) (1.18-3.74) x10^3/uL Absolute Monos (auto) (0.24-0.86) x10^3/uL Absolute Nucleated RBC (0.00-0.012) x10^3u/L Lymphocytes % (19.3-51.7) % Monocytes % (4.7-12.5) % Eosinophils % (0.7-5.8) % Basophils % (0.1-1.2) % Absolute Granulocytes (1.56-6.13) x10^3/uL Basophils # (0.01-0.08) x10^3/uL ESR 4 (0-20) mm/hr Sodium 140 (135-145) mmol/L Potassium 4.0 (3.5-5.1) mmol/L Chloride 105 (98-107) mmol/L Carbon Dioxide 29 (22-30) mmol/L Anion Gap 9.3 (5-15) MEQ/L BUN 11 (7-17) mg/dL Creatinine 0.80 (0.52-1.04) mg/dL Estimated GFR 94.9 ML/MIN Glucose 92 (74-106) mg/dL Calcium 9.6 (8.4-10.2) mg/dL Total Bilirubin 0.30 (0.2-1.3) mg/dL AST 16 (14-36) U/L ALT 14 (0-35) U/L Alkaline Phosphatase 103 (38-126) U/L Serum Total Protein 6.8 (6.3-8.2) g/dL Albumin 4.2 (3.5-5.0) g/dL Serum HCG, Qual NEGATIVE (NEGATIVE) 01/19/24 Range/Units 04:47 WBC 6.3 (3.98-10.04) x10^3/uL RBC 4.03 (3.93-5.22) x10^6/uL Hgb 12.4 (11.2-15.7) g/dL Hct 37.1 (34.1-44.9) % MCV 92.1 (79.4-94.8) fL MCH 30.8 (25.6-32.2) pg MCHC 33.4 (32.2-35.5) g/dL RDW 12.5 (11.7-14.4) % Plt Count 246 (182-369) x10^3/uL MPV 9.8 (9.4-12.3) fL Gran % 53.3 (34.0-71.1) % Immature Gran % (Auto) 0.3 (0.001-0.429) % Nucleat RBC Rel Count 0.0 (0.00-0.2) % Eos # (Auto) 0.08 (0.04-0.36) x10^3/uL Immature Gran # (Auto) 0.02 (0.001-0.031) x10^3u/L Absolute Lymphs (auto) 2.51 (1.18-3.74) x10^3/uL Absolute Monos (auto) 0.31 (0.24-0.86) x10^3/uL Absolute Nucleated RBC 0.00 (0.00-0.012) x10^3u/L Lymphocytes % 39.7 (19.3-51.7) % Monocytes % 4.9 (4.7-12.5) % Eosinophils % 1.3 (0.7-5.8) % Basophils % 0.5 (0.1-1.2) % Absolute Granulocytes 3.38 (1.56-6.13) x10^3/uL Basophils # 0.03 (0.01-0.08) x10^3/uL ESR (0-20) mm/hr Sodium (135-145) mmol/L Potassium (3.5-5.1) mmol/L Chloride (98-107) mmol/L Carbon Dioxide (22-30) mmol/L Anion Gap (5-15) MEQ/L BUN (7-17) mg/dL Creatinine (0.52-1.04) mg/dL Estimated GFR ML/MIN Glucose (74-106) mg/dL Calcium (8.4-10.2) mg/dL Total Bilirubin (0.2-1.3) mg/dL AST (14-36) U/L ALT (0-35) U/L Alkaline Phosphatase (38-126) U/L Serum Total Protein (6.3-8.2) g/dL Albumin (3.5-5.0) g/dL Serum HCG, Qual (NEGATIVE) - Progress Progress: improved, re-examined Progress Note: 01/19/24 05:46 pain improved - results discussed with pt and available family. SHe is advised to see her tomorrow and get pain referral if pain continues. Counseled pt/family regarding: lab results, diagnosis, need for follow-up, rad results Medical Desision Making - Independent Historian Additional History obtained from: Family - Discussion of managment Reviewed:: Test results, Need for additional workup Agreed on:: Treatment plan, need for follow-up - Diagnostic Testing Diagnostic test were ordered, analyzed, and reviewed by me: Yes Radiological Interpretation: Teleradiologist Report - Risk of complications The pt has a mod risk of morbidity or mortality based on: Need for prescription drug management The pt has a high risk of morbidity or mortality based on: Decision regarding hospitilization or escalation of hosp level of care - Departure Departure Disposition: Home Clinical Impression: Hip pain unknown etiology Condition: Good Critical Care Time: No Referrals: DOCTOR,NO FAMILY [Primary Care Provider] - Follow up/PCP as directed Instructions: Chronic Pain (DC), Hip pain in adults, Bursitis (DC) Additional Instructions: We have not found a specific cause for your hip symptoms and so further workup by your dr is advised - followup with your Dr. tomorrow and return meantime if any concerns. an MRI and pain referral may be needed.
[2024-01-19] MEDS: NORCO 10-325 MG PO ONE ×2 (04:12→06:08)
[2024-01-19] MEDS ORDERED: NORCO 10-325 MG ONE ×2 (04:12→06:06)
[2024-01-19 04:50] LABS: Absolute Neutrophil Ct (ANC) 3.38 x10^3/uL (1.56-6.13); BASOPHIL % 0.5 % (0.1-1.2); Basophil (Absolute #) 0.03 x10^3/uL (0.01-0.08); Eosinophil % 1.3 % (0.7-5.8); Eosinophil (Absolute #) 0.08 x10^3/uL (0.04-0.36); Hematocrit 37.1 % (34.1-44.9); Hemoglobin 12.4 g/dL (11.2-15.7); IMMATURE GRAN # 0.02 x10^3u/L (0.001-0.031); IMMATURE GRAN % 0.3 % (0.001-0.429); Lymphocyte (Absolute #) 2.51 x10^3/uL (1.18-3.74); Lymphocytes % 39.7 % (19.3-51.7); Mean Cell Volume 92.1 fL (79.4-94.8); Mean Corpuscular Hemoglobin 30.8 pg (25.6-32.2); Mean Corpuscular Hgb Concent. 33.4 g/dL (32.2-35.5); Mean Platelet Volume 9.8 fL (9.4-12.3); Monocyte (Absolute #) 0.31 x10^3/uL (0.24-0.86); Monocytes % 4.9 % (4.7-12.5); Neutrophil % 53.3 % (34.0-71.1); Platelet Count 246 x10^3/uL (182-369); Red Blood Count 4.03 x10^6/uL (3.93-5.22); Red Cell Distribution Width 12.5 % (11.7-14.4); White Blood Count 6.3 x10^3/uL (3.98-10.04)
[2024-01-19 05:02] LABS: HCG SERUM TEST NEGATIVE (NEGATIVE)
[2024-01-19 05:03] LABS: ALBUMIN 4.2 g/dL (3.5-5.0); ANION GAP 9.3 MEQ/L (5-15); BILIRUBIN,TOTAL 0.3 mg/dL (0.2-1.3); Calcium 9.6 mg/dL (8.4-10.2); Creatinine 1 0.8 mg/dL (0.52-1.04); EST GLOMERULAR FILTRATION RATE 94.9 ML/MIN; Total Protein 6.8 g/dL (6.3-8.2)
--- NOTE | 2024-01-19 05:32 | XRAY ---
CLINICAL HISTORY: pain and tenderness left hip COMPARISON: None. TECHNIQUE: Axial noncontrast CT scan of the left hip with sagittal and coronal reformats. One of the following dose reduction techniques were utilized for this exam: Automated exposure control, adjustment of the mA and/or kV according to patient size, use of iterative reconstruction. One of the following dose reduction techniques was utilized for this exam.Automated exposure control, adjustment of the mA and/or kV according to patient size, and use of iterative reconstruction. FINDINGS: No fracture or dislocation. Tiny sclerosis seen at the left femoral head suggestive of bone island. Maintained left hip joint space. No articular postsurgical changes. No lytic bone lesions. Normal muscles and subcutaneous tissues. Normal visualized part of the pelvis. No ascites seen. IMPRESSION: No acute abnormality detected. Electronically Signed by: James Taveras MD. (01/19/2024 05:27:54 EDT)
[2024-01-19] MEDS ORDERED: NORCO 5/325 MG ONE (06:06)
[2024-01-19] MEDS: NORCO 5/325 MG PO ONE (06:09)
[2024-01-19 06:20] VITALS: BP 118/75; PULSE 89; O2SAT 97
== END 2024-01-19 06:18 | disposition home or self-care (01) ==
LOC: ED 02:21
DX: M25.552 Pain in left hip (principal); Z72.0 Tobacco use
CPT/HCPCS: 36415; 73700; 80053; 84703; 85025; 85652; 99283; A9270-GY

== ENCOUNTER 2024-02-17 21:39 | Emergency (ER) | payer MEDICARE, OTHER ==
[2024-02-17 22:22] VITALS: RESP 18
[2024-02-17 22:22] LABS: Absolute Neutrophil Ct (ANC) 3.87 x10^3/uL (1.56-6.13); BASOPHIL % 0.5 % (0.1-1.2); Basophil (Absolute #) 0.03 x10^3/uL (0.01-0.08); Eosinophil % 0.8 % (0.7-5.8); Eosinophil (Absolute #) 0.05 x10^3/uL (0.04-0.36); Hematocrit 36.8 % (34.1-44.9); Hemoglobin 12.5 g/dL (11.2-15.7); IMMATURE GRAN # 0.02 x10^3u/L (0.001-0.031); IMMATURE GRAN % 0.3 % (0.001-0.429); Lymphocytes % 32.2 % (19.3-51.7); Mean Cell Volume 93.4 fL (79.4-94.8); Mean Corpuscular Hemoglobin 31.7 pg (25.6-32.2); Mean Platelet Volume 9.3 fL (9.4-12.3); Monocyte (Absolute #) 0.46 x10^3/uL (0.24-0.86); Neutrophil % 59.2 % (34.0-71.1); Platelet Count 218 x10^3/uL (182-369); Red Blood Count 3.94 x10^6/uL (3.93-5.22); Red Cell Distribution Width 12.5 % (11.7-14.4); White Blood Count 6.5 x10^3/uL (3.98-10.04)
[2024-02-17] MEDS ORDERED: PROTONIX 40 MG IV IV ONE (22:22)
[2024-02-17] MEDS ORDERED: Sodium Chloride 0.9% 1000 ML 1,000 ML ONE (22:22)
[2024-02-17] MEDS ORDERED: TORAdol 30 mg Injection ONE (22:22)
[2024-02-17] MEDS: Sodium Chloride 0.9% 1000 ML 1,000 ML IV STA (22:24)
[2024-02-17] MEDS: TORAdol 30 mg Injection IV ONE (22:25)
[2024-02-17 22:26] LABS: Appearance Clear (Clear); Bacteria None Seen /HPF (None Seen); Bilirubin Negative (Negative); Blood Negative (Negative); Epithelial Cells None Seen /HPF (None Seen); Glucose, Urine Negative (Negative); Hyaline Casts NONE SEEN /LPF (0-2); Ketones Negative (Negative); Leukocyte Esterase Negative (Negative); Nitrite Negative (Negative); Ph 7.5 (4.6-8.0); Protein,Urine Dip Negative (Negative); RBC 0-2 /HPF (0-5); Specific Gravity 1.015 (1.005-1.030); Urobilinogen 0.2 mg/dL (0.2); WBC 0-2 /HPF (0-5)
[2024-02-17] MEDS: PROTONIX 40 MG IV IV ONE (22:27)
[2024-02-17 22:32] LABS: ADD URINE CULTURE? NO (NO)
--- NOTE | 2024-02-17 22:32 | ERPHSYRPT ---
- History of Present Illness Time Seen by Provider: 02/17/24 21:57 Historian: patient Exam Limitations: no limitations Patient Subjective Stated Complaint: pt states she has sludge in her bile ducts and has been having abd pain and diarrhea since last saturday. rates pain 10/10 in rt upper abd Triage Nursing Assessment: pt alert and oriented. pt yelling at provider when asked questions. pt ambulates into room with steady gait noted. respirations nonlabored. skin warm and dry. abd soft, bowel sounds present. Physician History: 43-year-old female with history of cholecystectomy, CBD sludge scheduled for ERCP at [facility] presented in the ER with complaint of pain right upper quadrant and loose stool for the last couple of days. Patient reports moderate intensity dull aching to sharp pain nonradiating, aggravated with palpation and movements. Reports nausea but no vomiting. Patient reports she is not able to hold much down and is feeling weak fatigued and tired. No fever or chills reported. Patient is supposed to take PPIs but is not taking. Patient is very angry, asking for pain and yelling when asked questions. Allergies/Adverse Reactions: adhesive tape Allergy (Mild, Verified 02/17/24 22:22) Blisters diazepam [From Valium] Allergy (Mild, Verified 02/17/24 22:22) sertraline [From Zoloft] Allergy (Mild, Verified 02/17/24 22:22) sulfamethoxazole [From Bactrim] Allergy (Mild, Verified 02/17/24 22:22) trimethoprim [From Bactrim] Allergy (Mild, Verified 02/17/24 22:22) Home Medications: No Reportable Medications [No Reported Medications] 01/15/24 [History] Hx Tetanus, Diphtheria Vaccination/Date Given: Yes Hx Influenza Vaccination/Date Given: No Hx Pneumococcal Vaccination/Date Given: No Immunizations Up to Date: Yes Travel Risk - International Travel Have you traveled outside of the country in past 3 weeks: No - Emerging Infectious Disease Are you exhibiting symptoms associated with any current EIDs: No Symptoms: Joint Pain - Review of Systems Constitutional: No Symptoms Ears, Nose, & Throat: No Symptoms Respiratory: No Symptoms Cardiac: No Symptoms Abdominal/Gastrointestinal: Abdominal Pain, Nausea, Diarrhea Genitourinary Symptoms: No Symptoms Musculoskeletal: No Symptoms Skin: No Symptoms Neurological: No Symptoms Psychological: No Symptoms Endocrine: No Symptoms Hematologic/Lymphatic: No Symptoms - Past Medical History Pertinent Past Medical History: Yes Neurological History: No Pertinent History ENT History: No Pertinent History Cardiac History: No Pertinent History Respiratory History: No Pertinent History Endocrine Medical History: No Pertinent History Musculoskeletal History: Degenerative Disk Disease, Osteoarthritis, Other GI Medical History: Gallbladder Disease History: No Pertinent History Psycho-Social History: No Pertinent History Female Reproductive Disorders: No Pertinent History Other Medical History: back strains - Past Surgical History Past Surgical History: Yes Neuro Surgical History: No Pertinent History Cardiac: No Pertinent History Respiratory: No Pertinent History Gastrointestinal: Cholecystectomy Genitourinary: No Pertinent History Musculoskeletal: No Pertinent History Female Surgical History: Tubal Ligation, Other Other Surgical History: R ovary removed. uterine ablation, lt ovarian cyst, - Female History Hx Last Menstrual Period: ablation 2011 Hx Now: No - Social History Smoking Status: Current every day smoker How long have you smoked: 28 yrs Exposure to second hand smoke: Yes Drug Use: none Patient Lives Alone: No - Social Determinants of Health Will the patient participate in the screening: Yes Do you worry about a steady place to live?: No Do you have any problems with any of the following?: No known problems In the past 12 months,have you had to go without utilities?: No Transportation Issues: No Has anyone in your support network made you feel unsafe?: No Have you or anyone in your house had to go without enough: No - Nursing Vital Signs Nursing Vital Signs: Initial Vital Signs Blood Pressure 121/83 02/17/24 22:00 O2 Sat by Pulse Oximetry 98 02/17/24 22:00 Pain Scale Pain Intensity 10 - Physical Exam General Appearance: no apparent distress, alert Eye Exam: PERRL/EOMI Ears, Nose, Throat Exam: normal ENT inspection Neck Exam: normal inspection, full range of motion Respiratory Exam: normal breath sounds, lungs clear Cardiovascular Exam: regular rate/rhythm, normal heart sounds Gastrointestinal/Abdomen Exam: soft, normal bowel sounds, tenderness (Right upper quadrant/epigastric area.), No guarding Extremity Exam: normal inspection, normal range of motion Neurologic Exam: alert, oriented x 3, cooperative Skin Exam: normal color SpO2 Interpretation: normal SpO2: 98 O2 Delivery: Room Air Ordered Tests: Active Orders 24 hr Category Date Time Status IV Insertion STAT Care 02/17/24 22:09 Active CBC W DIFF Stat Lab 02/17/24 22:19 Completed CMP Stat Lab 02/17/24 22:19 Completed LIPASE Stat Lab 02/17/24 22:19 Completed UA W/RFX UR CULTURE Stat Lab 02/17/24 22:17 Completed Medication Summary Generic Name Dose Route Start Last Admin Trade Name Mario PRN Reason Stop Dose Admin Sodium Chloride 1,000 mls @ 999 mls/hr 02/17/24 22:09 02/17/24 22:24 Sodium Chloride 0.9% 1000 Ml IV 02/17/24 23:09 999 mls/hr .Q1H1M STA Administration Discontinued Medications Generic Name Dose Route Start Last Admin Trade Name Mario PRN Reason Stop Dose Admin Acetaminophen/Codeine Phosphate 1 tab 02/17/24 23:04 Codeine Phosphate/Apap #3 PO 02/17/24 23:05 STAT ONE Sodium Chloride Confirm 02/17/24 22:22 Sodium Chloride 0.9% 1000 Ml Administered 02/17/24 22:23 Dose 1,000 mls @ ud .ROUTE .STK-MED ONE Ketorolac Tromethamine 30 mg 02/17/24 22:09 02/17/24 22:25 Ketorolac Tromethamine 30 Mg/Ml Inj IV 02/17/24 22:10 30 mg STAT ONE Administration Ketorolac Tromethamine Confirm 02/17/24 22:22 Ketorolac Tromethamine 30 Mg/Ml Inj Administered 02/17/24 22:23 Dose 30 mg .ROUTE .STK-MED ONE Pantoprazole Sodium 40 mg 02/17/24 22:09 02/17/24 22:27 Pantoprazole 40 Mg Vial IV 02/17/24 22:10 40 mg STAT ONE Administration Pantoprazole Sodium Confirm 02/17/24 22:22 Pantoprazole 40 Mg Vial Administered 02/17/24 22:23 Dose 40 mg IV .STK-MED ONE Lab/Rad Data: Laboratory Result Diagrams 02/17/24 22:19 02/17/24 22:19 Laboratory Results 02/17/24 02/17/24 02/17/24 Range/Units 22:19 22:19 22:17 WBC 6.5 (3.98-10.04) x10^3/uL RBC 3.94 (3.93-5.22) x10^6/uL Hgb 12.5 (11.2-15.7) g/dL Hct 36.8 (34.1-44.9) % MCV 93.4 (79.4-94.8) fL MCH 31.7 (25.6-32.2) pg MCHC 34.0 (32.2-35.5) g/dL RDW 12.5 (11.7-14.4) % Plt Count 218 (182-369) x10^3/uL MPV 9.3 L (9.4-12.3) fL Gran % 59.2 (34.0-71.1) % Immature Gran % (Auto) 0.3 (0.001-0.429) % Nucleat RBC Rel Count 0.0 (0.00-0.2) % Eos # (Auto) 0.05 (0.04-0.36) x10^3/uL Immature Gran # (Auto) 0.02 (0.001-0.031) x10^3u/L Absolute Lymphs (auto) 2.10 (1.18-3.74) x10^3/uL Absolute Monos (auto) 0.46 (0.24-0.86) x10^3/uL Absolute Nucleated RBC 0.00 (0.00-0.012) x10^3u/L Lymphocytes % 32.2 (19.3-51.7) % Monocytes % 7.0 (4.7-12.5) % Eosinophils % 0.8 (0.7-5.8) % Basophils % 0.5 (0.1-1.2) % Absolute Granulocytes 3.87 (1.56-6.13) x10^3/uL Basophils # 0.03 (0.01-0.08) x10^3/uL Sodium 140 (135-145) mmol/L Potassium 3.6 (3.5-5.1) mmol/L Chloride 107 (98-107) mmol/L Carbon Dioxide 25 (22-30) mmol/L Anion Gap 11.8 (5-15) MEQ/L BUN 6 L (7-17) mg/dL Creatinine 0.67 (0.52-1.04) mg/dL Estimated GFR 112.5 ML/MIN Glucose 91 (74-106) mg/dL Calcium 9.7 (8.4-10.2) mg/dL Total Bilirubin 0.20 (0.2-1.3) mg/dL AST 23 (14-36) U/L ALT 27 (0-35) U/L Alkaline Phosphatase 100 (38-126) U/L Serum Total Protein 6.7 (6.3-8.2) g/dL Albumin 3.9 (3.5-5.0) g/dL Lipase 90 (23-300) U/L Urine Color Yellow (Yellow) Urine Appearance Clear (Clear) Urine pH 7.5 (4.6-8.0) Ur Specific [place] 1.015 (1.005-1.030) Urine Protein Negative (Negative) Urine Glucose (UA) Negative (Negative) mg/dL Urine Ketones Negative (Negative) Urine Blood Negative (Negative) Urine Nitrite Negative (Negative) Urine Bilirubin Negative (Negative) Urine Urobilinogen 0.2 (0.2) mg/dL Ur Leukocyte Esterase Negative (Negative) U Hyaline Cast (Auto) NONE SEEN (0-2) /LPF Urine Microscopic RBC 0-2 (0-5) /HPF Urine Microscopic WBC 0-2 (0-5) /HPF Ur Epithelial Cells None Seen (None Seen) /HPF Urine Bacteria None Seen (None Seen) /HPF Urine Culture Reflexed NO (NO) - Progress Progress: improved, pain not gone completely Progress Note: 02/17/24 23:07 43-year-old female with a history of cholecystectomy with CBD sludging scheduled for ERCP at [facility] is evaluated in the ER for increasing pain and diarrhea for the last few days. Patient has some tenderness in right upper quadrant but no guarding or rebound. She is given fluids and Toradol with no significant relief. Patient is given small dose of [place]. Workup showed normal white count, unremarkable chemistries with normal liver enzymes. No elevated pancreatic enzyme. With her physical exam and lab findings I do not think patient needs imaging, chronic pain, do not think patient needs any other workup. Recommended taking Tylenol ibuprofen and outpatient follow-up. Discussed signs symptoms of worsening needing return to ER which she seems understanding. Stable for discharge. Patient was constantly asking for narcotic pain medications, it was not a pleasant encounter. Counseled pt/family regarding: lab results, diagnosis, need for follow-up Medical Desision Making - Diagnostic Testing Diagnostic test were ordered, analyzed, and reviewed by me: Yes - Risk of complications The pt has a mod risk of morbidity or mortality based on: Need for prescription drug management - Departure Departure Disposition: Home Clinical Impression: Right upper quadrant pain Condition: Stable Critical Care Time: No Referrals: DOCTOR,NO FAMILY [Primary Care Provider] - Follow up with PCP 1 day Instructions: Severe Abdominal Pain, Adult (DC) Additional Instructions: Take Tylenol/ibuprofen as needed. Follow-up with your primary care and gastro for reevaluation. Return to ER for any worsening.
[2024-02-17 22:38] LABS: ALBUMIN 3.9 g/dL (3.5-5.0); ANION GAP 11.8 MEQ/L (5-15); BILIRUBIN,TOTAL 0.2 mg/dL (0.2-1.3); Calcium 9.7 mg/dL (8.4-10.2); Creatinine 1 0.67 mg/dL (0.52-1.04); EST GLOMERULAR FILTRATION RATE 112.5 ML/MIN; Potassium 3.6 mmol/L (3.5-5.1); Total Protein 6.7 g/dL (6.3-8.2)
[2024-02-17] MEDS ORDERED: Tylenol #3 Tablet ONE (23:18)
[2024-02-17] MEDS: Tylenol #3 Tablet PO ONE (23:19)
[2024-02-17 23:32] VITALS: BP 127/79; PULSE 81; O2SAT 99
== END 2024-02-17 23:35 | disposition home or self-care (01) ==
LOC: ED 21:39
DX: R10.11 Right upper quadrant pain (principal); R19.7 Diarrhea, unspecified; R11.0 Nausea; R53.1 Weakness; Z72.0 Tobacco use
CPT/HCPCS: 36000; 36415; 80053; 81001; 83690; 85025; 96360; 96374; 96375; 99284; J1885; A9270-GY

== ENCOUNTER 2024-03-11 19:21 | Emergency (ER) | payer MEDICARE ==
[2024-03-11 20:15] VITALS: PULSE 72; TEMP 97.5
[2024-03-11 20:32] VITALS: O2SAT 99
[2024-03-11 20:58] LABS: Appearance Clear (Clear); Bacteria Many /HPF (None Seen); Bilirubin Negative (Negative); Blood Negative (Negative); Epithelial Cells Few /HPF (None Seen); Glucose, Urine Negative (Negative); Hyaline Casts NONE SEEN /LPF (0-2); Ketones Negative (Negative); Leukocyte Esterase Trace (Negative); Nitrite Negative (Negative); Ph 5.5 (4.6-8.0); Protein,Urine Dip Negative (Negative); RBC 0-2 /HPF (0-5); Specific Gravity 1.015 (1.005-1.030); Urobilinogen 0.2 mg/dL (0.2)
[2024-03-11 20:59] LABS: ADD URINE CULTURE? YES (NO)
[2024-03-11] MEDS ORDERED: TORAdol 30 mg Injection ONE (21:25)
[2024-03-11 21:26] LABS: HCG URINE TEST NEGATIVE (NEGATIVE)
[2024-03-11] MEDS: TORAdol 30 mg Injection IM ONE (21:27)
[2024-03-11] MEDS ORDERED: Zofran 4 MG/2 ML VIAL ONE (21:27)
[2024-03-11] MEDS ORDERED: Ketamine HCl 50 MG/ML ONE (22:07)
[2024-03-11] MEDS: Ketamine HCl 50 MG/ML IM ONE (22:08)
[2024-03-11] MEDS ORDERED: Macrobid 100MG Capsule ONE (22:52)
[2024-03-11] MEDS: Macrobid 100MG Capsule PO ONE (22:54)
--- NOTE | 2024-03-11 22:54 | ERPHSYRPT ---
- History of Present Illness Time Seen by Provider: 03/11/24 21:10 Source: patient Exam Limitations: no limitations Patient Subjective Stated Complaint: left hip pain and mid low back pain Triage Nursing Assessment: Pt ambulated into ER with a limp. at bedside. Pt c/o middle low back pain and left hip pain. Pt had a fall about a week ago onto the left hip area. No bruises or deformities noted, however, tender to touch. Physician History: 43-year-old female presents to emergency department for evaluation of pain to her left hip and back. Patient states she fell approximately 1 week ago. Pain has been very significant limiting her function. Patient ambulates with an antalgic gait. Patient believes she dislocated her hip no other injuries reported. No change in bowel bladder function no fever no recent back procedure no saddle anesthesia. Patient otherwise feels well. She voices no other complaints or concerns at this time. Portions of this note were created with voice recognition technology. There may be grammatical, spelling, punctuation or sound alike errors Timing/Duration: week(s) (1 week) Severity: moderate Modifying Factors: Improves With: movement Associated Symptoms: denies symptoms Allergies/Adverse Reactions: adhesive tape Allergy (Mild, Verified 03/11/24 20:23) Blisters diazepam [From Valium] Allergy (Mild, Verified 03/11/24 20:23) sertraline [From Zoloft] Allergy (Mild, Verified 03/11/24 20:23) sulfamethoxazole [From Bactrim] Allergy (Mild, Verified 03/11/24 20:23) trimethoprim [From Bactrim] Allergy (Mild, Verified 03/11/24 20:23) Hx Tetanus, Diphtheria Vaccination/Date Given: Yes Hx Influenza Vaccination/Date Given: No Hx Pneumococcal Vaccination/Date Given: No Travel Risk - International Travel Have you traveled outside of the country in past 3 weeks: No - Emerging Infectious Disease Are you exhibiting symptoms associated with any current EIDs: Yes Symptoms: Joint Pain - Review of Systems Constitutional: No Symptoms, No Fever, No Chills Eyes: No Symptoms Ears, Nose, & Throat: No Symptoms Respiratory: No Symptoms, No Cough, No Dyspnea Cardiac: No Symptoms, No Chest Pain, No Edema, No Syncope Abdominal/Gastrointestinal: No Symptoms, No Abdominal Pain, No Nausea, No Vomiting, No Diarrhea Genitourinary Symptoms: No Symptoms, No Dysuria Musculoskeletal: No Symptoms, No Back Pain, No Neck Pain Skin: No Symptoms, No Rash Neurological: No Symptoms, No Dizziness, No Focal Weakness, No Sensory Changes Psychological: No Symptoms Endocrine: No Symptoms Hematologic/Lymphatic: No Symptoms Immunological/Allergic: No Symptoms All Other Systems: Reviewed and Negative - Past Medical History Pertinent Past Medical History: Yes Neurological History: No Pertinent History ENT History: No Pertinent History Cardiac History: No Pertinent History Respiratory History: No Pertinent History Endocrine Medical History: No Pertinent History Musculoskeletal History: Degenerative Disk Disease, Osteoarthritis, Other GI Medical History: Gallbladder Disease History: No Pertinent History Psycho-Social History: No Pertinent History Female Reproductive Disorders: No Pertinent History Other Medical History: back strains - Past Surgical History Past Surgical History: Yes Neuro Surgical History: No Pertinent History Cardiac: No Pertinent History Respiratory: No Pertinent History Gastrointestinal: Cholecystectomy Genitourinary: No Pertinent History Musculoskeletal: No Pertinent History Female Surgical History: Tubal Ligation, Other Other Surgical History: R ovary removed. uterine ablation, lt ovarian cyst, - Female History Hx Last Menstrual Period: 2011 Hx Now: No - Social History Smoking Status: Current every day smoker How long have you smoked: 29 yrs Exposure to second hand smoke: Yes Drug Use: none Patient Lives Alone: No - Social Determinants of Health Will the patient participate in the screening: Yes Do you worry about a steady place to live?: No Do you have any problems with any of the following?: No known problems In the past 12 months,have you had to go without utilities?: No Transportation Issues: No Has anyone in your support network made you feel unsafe?: No Have you or anyone in your house had to go without enough: No - Nursing Vital Signs Nursing Vital Signs: Initial Vital Signs Temperature 97.5 F 03/11/24 20:14 Pulse Rate 72 03/11/24 20:14 Respiratory Rate 18 03/11/24 20:14 Blood Pressure 100/67 03/11/24 20:14 O2 Sat by Pulse Oximetry 100 03/11/24 20:14 Pain Scale Pain Intensity 10 - Physical Exam General Appearance: no apparent distress, alert Eye Exam: PERRL/EOMI, eyes nml inspection Ears, Nose, Throat Exam: normal ENT inspection, moist mucous membranes Neck Exam: normal inspection, supple, full range of motion Respiratory Exam: normal breath sounds, lungs clear, airway intact, No respiratory distress Cardiovascular Exam: regular rate/rhythm, normal heart sounds, normal peripheral pulses Gastrointestinal/Abdomen Exam: soft, normal bowel sounds, No tenderness, No mass Back Exam: normal inspection, normal range of motion, other (Tenderness to palpation midline low back, lumbar spine. Overlying soft tissue intact. No signs of trauma), No CVA tenderness, No vertebral tenderness Extremity Exam: normal inspection, normal range of motion, pelvis stable, other (Tenderness to palpation left hip laterally into the groin area. Involved extremities neurovascular intact distally compartments are soft cap refill less than 2 seconds) Neurologic Exam: alert, oriented x 3, cooperative, normal mood/affect, nml cerebellar function, nml station & gait, sensation nml, No motor deficits Skin Exam: normal color, warm, dry, No rash Lymphatic Exam: No adenopathy SpO2 Interpretation: normal SpO2: 99 O2 Delivery: Room Air - Course Nursing assessment & vital signs reviewed: Yes - CT Exams Lower Extremity CT Interpretation: Tele-radiologist Report (Completely normal hip) Lumbar Spine CT Interpretation: Tele-radiologist Report (No fractures or dislocations no acute findings) Ordered Tests: Active Orders 24 hr Category Date Time Status Clean Catch Urine Specimen STAT Care 03/11/24 20:31 Active LOWER EXTREMITY WO CONTRAST [CT] Stat Exams 03/11/24 21:17 Taken LUMBAR SPINE W/O [CT] Stat Exams 03/11/24 21:16 Taken CULTURE,URINE Stat Lab 03/11/24 20:30 Received HCG QUALITATIVE, URINE Stat Lab 03/11/24 20:32 Completed UA W/RFX UR CULTURE Stat Lab 03/11/24 20:30 Completed Urine Triage Profile Stat Lab 03/11/24 20:30 Received Medication Summary Discontinued Medications Generic Name Dose Route Start Last Admin Trade Name Freq PRN Reason Stop Dose Admin Ketamine HCl 8 mg 03/11/24 21:58 03/11/24 22:08 Ketamine Hcl 50 Mg/Ml IM 03/11/24 21:59 8 mg STAT ONE Administration Ketamine HCl Confirm 03/11/24 22:07 Ketamine Hcl 50 Mg/Ml Administered 03/11/24 22:08 Dose 50 mg .ROUTE .STK-MED ONE Ketorolac Tromethamine 30 mg 03/11/24 21:18 03/11/24 21:27 Ketorolac Tromethamine 30 Mg/Ml Inj IM 03/11/24 21:19 30 mg STAT ONE Administration Ketorolac Tromethamine Confirm 03/11/24 21:25 Ketorolac Tromethamine 30 Mg/Ml Inj Administered 03/11/24 21:26 Dose 30 mg .ROUTE .STK-MED ONE Nitrofurantoin Macrocrystals 100 mg 03/11/24 22:51 03/11/24 22:54 Nitrofurantoin Macro 100 Mg Capsule PO 03/11/24 22:52 100 mg STAT ONE Administration Nitrofurantoin Macrocrystals Confirm 03/11/24 22:52 Nitrofurantoin Macro 100 Mg Capsule Administered 03/11/24 22:53 Dose 100 mg .ROUTE .STK-MED ONE Ondansetron HCl Confirm 03/11/24 21:27 Ondansetron Hcl 4 Mg/2 Ml Vial Administered 03/11/24 21:28 Dose 4 mg .ROUTE .STK-MED ONE Lab/Rad Data: Laboratory Results 03/11/24 03/11/24 Range/Units 20:32 20:30 Urine Color Yellow (Yellow) Urine Appearance Clear (Clear) Urine pH 5.5 (4.6-8.0) Ur Specific [place] 1.015 (1.005-1.030) Urine Protein Negative (Negative) Urine Glucose (UA) Negative (Negative) mg/dL Urine Ketones Negative (Negative) Urine Blood Negative (Negative) Urine Nitrite Negative (Negative) Urine Bilirubin Negative (Negative) Urine Urobilinogen 0.2 (0.2) mg/dL Ur Leukocyte Esterase Trace A (Negative) U Hyaline Cast (Auto) NONE SEEN (0-2) /LPF Urine Microscopic RBC 0-2 (0-5) /HPF Urine Microscopic WBC 11-20 A (0-5) /HPF Ur Epithelial Cells Few (None Seen) /HPF Urine Bacteria Many A (None Seen) /HPF Urine Culture Reflexed YES (NO) Urine HCG, Qual NEGATIVE (NEGATIVE) - Progress Progress: improved Progress Note: 43-year-old female presents to our ED for evaluation of low back and left hip pain x 1 week. Patient believes she dislocated her left hip 1 week ago. Patient ambulates with an antalgic gait pattern. Physical exam shows tenderness to the midline lumbar spine and left lateral hip into the groin area. Extremities are neurovascular tact distally compartments are soft cap refill less than [address] of the lumbar and left hip are negative for fracture dislocation no acute pathology observed. Patient received ketamine for pain control. UA reveals urinary tract infection. Patient received Macrobid. A prescription for Macrobid forwarded to patient's pharmacy. Patient also received the prescription for Robaxin and Toradol for pain control. Referral to orthopedic clinic provided. Patient voices no other complaints or concerns this time. Will discharge home. Portions of this note were created with voice recognition technology. There may be grammatical, spelling, punctuation or sound alike errors Complexity problem addressed is moderate acute complicated. No critical care time. Complexity data reviewed and analyzed is moderate. Test ordered chest reviewed results analyzed and correlated clinically with history and physical exam. Risk of complication and or risk of morbidity/mortality patient management is low. Vital stable. Time spent to discharge patient approximately 20 minutes. Plan of care established for shared decision making. No social determinants of health present to impede follow-up. Patient does not have a primary care provider to follow-up with. Patient referred to Dr. Mariscal for follow-up/routine care 03/11/24 23:03 Counseled pt/family regarding: diagnosis, need for follow-up, rad results - Departure Departure Disposition: Home Clinical Impression: Hip strain, Lumbosacral strain, UTI (urinary tract infection) Condition: Stable Critical Care Time: No Referrals: DOCTOR,NO FAMILY [Primary Care Provider] - Follow up/PCP as directed MANOLO MARISCAL MD [ACTIVE STAFF] - Follow up/PCP as directed Additional Instructions: Discharge/Care Plan JACKSONLILI DINO was seen on 03/11/24 in the Emergency Room. The patient was counseled regarding Diagnosis,Lab results, Imaging studies, need for follow up and when to return to the Emergency Room. Prescriptions given: Discharge Note I have spoken with the patient and/or caregivers. I have explained the patient's condition, diagnosis and treatment plan based on the information available to me at this time. I have answered the patient's and/or caregiver's questions and addressed any concerns. The patient and/or caregivers have as good understanding of the patient's diagnosis, condition and treatment plan as can be expected at this point. The vital signs have been stable. The patient's condition is stable and appropriate for discharge from the emergency department. The patient will pursue further outpatient evaluation with the primary care physician or other designated or consulting physician as outlined in the discharge instructions. The patient and/or caregivers are agreeable to this plan of care and follow-up instructions have been explained in detail. The patient and/or caregivers have received these instruction. The patient/and or caregivers are aware that any significant change in condition or worsening of symptoms should prompt an immediate return to this or the closest emergency department or call 911. Prescriptions: Nitrofurantoin Macro 100 mg [Macrobid 100MG Capsule] 100 mg PO BID 7 Days #14 cap methocarbamoL [Methocarbamol] 500 mg PO TID 5 Days #15 tablet Ketorolac Trometh 10 mg Tab [TORAdol 10 MG TABLET] 10 mg PO TID 5 Days #15 tablet Outpatient Orders: Ortho Referral Time Frame: 1 Day, Facility: [facility], Location: [facility]
[2024-03-11 23:04] VITALS: BP 110/73; RESP 17
[2024-03-11 23:28] LABS: Amphetamine,Urine NEGATIVE (NEGATIVE); Barbiturate,Urine NEGATIVE (NEGATIVE); Benzodiazepine,Urine NEGATIVE (NEGATIVE); Cocaine,Urine NEGATIVE (NEGATIVE); Methadone,Urine NEGATIVE (NEGATIVE); Opiate,Urine POSITIVE (NEGATIVE); PCP,Urine NEGATIVE (NEGATIVE); THC,Urine NEGATIVE (NEGATIVE)
--- NOTE | 2024-03-12 09:08 | XRAY ---
Indication: Pain. Multiple contiguous axial images obtained through the lumbar spine. Sagittal and coronal reformatted images obtained. Comparison: None Axial images negative for acute fracture, suspicious bony lesions, or spinal canal stenosis. Facets and SI joints are symmetric. Sagittal and coronal reformatted images demonstrates normal alignment with vertebral body heights/disc spaces maintained. No acute compression fracture or subluxation. Visualized noncontrasted soft tissues are unremarkable. Impression: Negative CT lumbar spine without contrast exam.
--- NOTE | 2024-03-12 09:10 | XRAY ---
Indication: Pain. No known injury. Multiple contiguous axial images obtained through the left hip without contrast. Sagittal and coronal reformatted images obtained. Comparison: January 15, 2024 and January 19, 2024 Left hip articulation intact without abnormal large effusion. Axial images negative for acute fracture, suspicious bony lesions, or osseous destructive process. Again tiny spurring greater and lesser trochanters. Visualized noncontrasted soft tissues are unremarkable.. Impression: Continued negative CT left hip without contrast exam.
== END 2024-03-11 23:06 | disposition home or self-care (01) ==
LOC: ED 19:21
DX: S76.012A Strain of muscle, fascia and tendon of left hip, initial encounter (principal); S39.012A Strain of muscle, fascia and tendon of lower back, initial encounter; W19.XXXA Unspecified fall, initial encounter; N39.0 Urinary tract infection, site not specified; Z72.0 Tobacco use; Z79.899 Other long term (current) drug therapy
CPT/HCPCS: 72131; 73700; 80307; 81001; 81025; 87077; 87086; 87186; 96372; 99284; J1885; J2405; A9270-GY